=== PATIENT | male | born 1950 | race African-American/Black ===

== ENCOUNTER 2018-06-17 11:48 | Observation (INO) ==
[2018-06-17] MEDS ORDERED: MethylPREDNISolone Sod Succinate Inj 125 MG/2 ML Vial IV.PUSH ONE (13:27)
--- NOTE | 2018-06-17 13:35 | ED ---
HPI General Chief Complaint: Shortness of Breath/Dyspnea Stated Complaint: Headache Complaint Time Seen by Provider: 06/17/18 13:01 Source: patient Mode of arrival: EMS Limitations: no limitations History of Present Illness 68-year-old male with PMH of COPD, HTN, HLD, PTSD, chronic back pain, narcotic abuse, anxiety presents the ED via EMS for evaluation of shortness of breath. The [facility] was [facility] for evaluation and sent to the ED. EMS reported that the patient was hyperventilating in the waiting room at the [facility]. On presentation the patient states that he "had a spell" this morning. He states that he was running behind today, began to feel short of breath when he took his walker to the car and even more short of breath [facility] He reports a heavy sensation in his chest and diaphoresis at the time. This has now resolved. He endorses cough occasionally productive of yellow sputum. He denies fever, chills, nausea, vomiting, chest pain, palpitations, abdominal pain. He states that he has nebulizer treatments at home but did not use them today. He denies current cigarette smoking. He denies recent period of immobilization. He does not use supplemental oxygen at home. Related Data Home Medications Medication Instructions Recorded Confirmed gabapentin 600 mg PO BID 06/17/18 06/17/18 hydrochlorothiazide 12.5 mg PO DAILY 06/17/18 06/17/18 metoprolol tartrate 12.5 mg PO BID 06/17/18 06/17/18 mirtazapine 45 mg PO HS 06/17/18 06/17/18 multivitamin with minerals 1 cap PO DAILY 06/17/18 06/17/18 niacin 500 mg PO HS 06/17/18 06/17/18 omeprazole 20 mg PO DAILY 06/17/18 06/17/18 quetiapine 50 mg PO BID 06/17/18 06/17/18 sildenafil 50 mg PO QWEEK PRN 06/17/18 06/17/18 Allergies Allergy/AdvReac Type Severity Reaction Status Date / Time baclofen Allergy Unknown Unverified 01/19/17 20:13 etodolac Allergy Unknown Unverified 01/19/17 20:13 tramadol AdvReac Unknown Unverified 01/19/17 20:13 Review of Systems ROS: all other systems reviewed are negative [facility] Medical History Medical History Adjustment disorder with anxiety (Acute) HTN (hypertension) (Acute) Hypercholesteremia (Acute) Hypertriglyceridemia (Acute) Narcotic abuse (Acute) PTSD (post-traumatic stress disorder) (Acute) Family History Family History Other Diabetes mellitus, type II Hypertension Social History Social History Substance History: No History of Abuse Second Hand Smoke Exposure: No Smoking Status: Former smoker How Often Do You Have a Drink Containing Alcohol: Never Recent Travel in [facility] within the Last 8 Weeks: No Recent Out of Country Travel within the Last 8 Weeks: No Immunization History Tetanus Immunization: <5 Years Exam Narrative Exam Narrative: GENERAL: Well-nourished, well-developed, nontoxic-appearing -Romanian male in no acute distress. SKIN: Focused skin assessment warm/dry. HEAD: Atraumatic. Normocephalic. EYES: Pupils equal and round. No scleral icterus. No injection or drainage. ENT: No nasal bleeding or discharge. Mucous membranes pink and moist. NECK: Trachea midline. No JVD. CARDIOVASCULAR: Regular rate and rhythm. No murmur appreciated. RESPIRATORY: No accessory muscle use. Breath sounds equal bilaterally. No wheezes or rhonchi. GASTROINTESTINAL: Abdomen soft, non-tender, nondistended. Hepatic and splenic margins not palpable. MUSCULOSKELETAL: No obvious deformities. No clubbing. No cyanosis. No edema. NEUROLOGICAL: Awake and alert. No obvious cranial nerve deficits. Motor grossly within normal limits. Normal speech. PSYCHIATRIC: Appropriate mood and affect; insight and judgment normal. Course Reevaluation(s) Reevaluation #1: On recheck patient reports improvement of his breathing symptoms. I discussed the findings with the patient as well as the need for observation admission. He is agreeable. Time: 16:14 Initial Documented Vital Signs Temperature 98.6 F 06/17/18 12:04 Pulse Rate 86 06/17/18 12:04 Respiratory Rate 34 H 06/17/18 12:04 Blood Pressure 124/60 06/17/18 12:04 Pulse Oximetry 100 06/17/18 12:04 Last Documented Vital Signs Temperature 98.2 F 06/18/18 23:51 Pulse Rate 70 06/18/18 23:51 Respiratory Rate 16 06/18/18 23:51 Blood Pressure 133/76 06/18/18 23:51 Pulse Oximetry 96 06/18/18 23:51 Medical Decision Making ADELAIDA Attestation ADELAIDA supervised visit: Yes Attestation: I, Dr. Weathers, have reviewed the advance practice practitioner's documentation and am in agreement, met with the patient face to face, made the diagnosis, and the medical decision making was done by me. *My assessment and Findings: NSTEMI MDM Narrative Medical decision making narrative: 68-year-old male with PMH of COPD, HTN, HLD, PTSD, chronic back pain, narcotic abuse, anxiety presents the ED via EMS for evaluation of shortness of breath. The patient was at the [facility] for evaluation and sent to the ED. EMS reported that the patient was hyperventilating in the waiting room at the [facility]. On presentation the patient states that he "had a spell " this morning. He states that he was running behind today, began to feel short of breath when he took his walker to the car and even more short of breath [facility]. He reports a heavy sensation in his chest and diaphoresis at the time. This has now resolved. Pulse rate 86, BP 124 /60, respiratory rate 34, O2 sats 100% on arrival. Respiratory rate improved to 22 while the patient was awaiting evaluation. On physical exam this is a nontoxic appearing -Romanian male in no acute distress. Chest CTAP. Abdomen soft and nontender. No lower extremity edema. Patient was administered IV Solu-Medrol and DuoNeb's x 3 and 325mg aspirin. CBC with no leukocytosis or anemia. CMP unremarkable. EKG without acute findings x 2. CXR reveals mild increased interstitial markings bilaterally consistent with acute or chronic interstitial disease. Mild cardiomegaly noted. Troponin 0.28. On recheck patient reports improvement of his symptoms. CTA with no evidence of PE. I discussed all the findings with the patient as well as the need for observation admission for further evaluation. He is agreeable to this plan. I spoke with who agrees to accept the patient to the medicine service. Please see medicine notes for disposition. Medical Screen Exam Complete: Yes Emergency Medical Condition: Yes Differential Diagnosis Differential Diagnosis: COPD exacerbation versus anxiety versus ACS versus other Lab Data Lab results reviewed: Yes I reviewed the patient's lab results. Result diagrams: 06/18/18 06:45 06/18/18 06:45 Lab Results 06/17/18 06/17/18 06/17/18 Range/Units 13:40 13:40 13:40 WBC 6.1 (4.0-11.0) th/mm3 RBC 4.95 (4.50-5.90) mil/mm3 Hgb 15.9 (13.0-17.0) gm/dL Hct 46.5 (39.0-51.0) % MCV 93.8 (80.0-100.0) fL MCH 32.0 (27.0-34.0) pg MCHC 34.1 (32.0-36.0) % RDW 14.2 (11.6-17.2) % Plt Count 240 (150-450) th/mm3 MPV 7.1 (7.0-11.0) fL Neut % (Auto) 49.4 (16.0-70.0) % Lymph % (Auto) 35.4 (9.0-44.0) % Bent % (Auto) 9.1 H (0.0-8.0) % Eos % (Auto) 4.9 H (0.0-4.0) % Baso % (Auto) 1.2 (0.0-2.0) % Neut # (Auto) 3.0 (1.8-7.7) th/mm3 Lymph # (Auto) 2.2 (1.0-4.8) th/mm3 Bent # (Auto) 0.6 (0.0-0.9) th/mm3 Eos # (Auto) 0.3 (0.0-0.4) th/mm3 Baso # (Auto) 0.1 (0.0-0.2) th/mm3 WBC Differential . Differential Comment Auto diff final PT (9.8-11.6) sec INR Ratio APTT (23.4-31.7) sec Puncture Site Patient Temperature O2 Saturation (90-100) % ABG pH (7.380-7.420) ABG pCO2 (38-42) mmHg ABG pO2 (61-120) mmHg ABG HCO3 (22-26) mmol/L ABG O2 Content (12.0-20.0) Vol % ABG Base Excess (-2-2) mmol/L ABG Methemoglobin (0-2) % Rod Test Hemoglobin (12.0-16.0) G/DL Carboxyhemoglobin (0-4) % O2 Delivery Device Inspired O2 % Critical Value Sodium 140 (136-145) meq/L Potassium 4.4 (3.5-5.1) meq/L Chloride 108 H (98-107) meq/L Carbon Dioxide 23.9 (21.0-32.0) meq/L Anion Gap 8 (5-15) meq/L BUN 16 (7-18) mg/dL Creatinine 1.19 (0.60-1.30) mg/dL Estimated GFR 73 L (>89) mL/min Random Glucose 94 (74-106) mg/dL Calcium 9.5 (8.5-10.1) mg/dL Total Bilirubin 0.6 (0.2-1.0) mg/dL AST 29 (15-37) U/L ALT 27 (12-78) U/L Alkaline Phosphatase 100 (45-117) U/L Total Creatine Kinase (39-308) U/L Troponin I 0.28 H (0.02-0.05) ng/mL B-Natriuretic Peptide 16 (0-100) pg/mL Total Protein 7.7 (6.4-8.2) g/dL Albumin 3.7 (3.4-5.0) g/dL Triglycerides (42-150) mg/dL Cholesterol (120-200) mg/dL LDL Cholesterol, Calc (0-99) mg/dL HDL Cholesterol (40.0-60.0) mg/dL Cholesterol/HDL Ratio Ratio 06/17/18 06/17/18 06/17/18 Range/Units 16:35 18:10 18:20 WBC (4.0-11.0) th/mm3 RBC (4.50-5.90) mil/mm3 Hgb (13.0-17.0) gm/dL Hct (39.0-51.0) % MCV (80.0-100.0) fL MCH (27.0-34.0) pg MCHC (32.0-36.0) % RDW (11.6-17.2) % Plt Count (150-450) th/mm3 MPV (7.0-11.0) fL Neut % (Auto) (16.0-70.0) % Lymph % (Auto) (9.0-44.0) % Bent % (Auto) (0.0-8.0) % Eos % (Auto) (0.0-4.0) % Baso % (Auto) (0.0-2.0) % Neut # (Auto) (1.8-7.7) th/mm3 Lymph # (Auto) (1.0-4.8) th/mm3 Bent # (Auto) (0.0-0.9) th/mm3 Eos # (Auto) (0.0-0.4) th/mm3 Baso # (Auto) (0.0-0.2) th/mm3 WBC Differential Differential Comment PT 11.0 (9.8-11.6) sec INR 1.1 Ratio APTT 24.9 (23.4-31.7) sec Puncture Site Right radial Patient Temperature 98.6 O2 Saturation 90 (90-100) % ABG pH 7.43 H (7.380-7.420) ABG pCO2 38 (38-42) mmHg ABG pO2 64 (61-120) mmHg ABG HCO3 25 (22-26) mmol/L ABG O2 Content 20.1 H (12.0-20.0) Vol % ABG Base Excess 0.8 (-2-2) mmol/L ABG Methemoglobin 0.6 (0-2) % Rod Test Present Hemoglobin 15.8 (12.0-16.0) G/DL Carboxyhemoglobin 1.9 (0-4) % O2 Delivery Device Room air Inspired O2 21 % Critical Value No Sodium (136-145) meq/L Potassium (3.5-5.1) meq/L Chloride (98-107) meq/L Carbon Dioxide (21.0-32.0) meq/L Anion Gap (5-15) meq/L BUN (7-18) mg/dL Creatinine (0.60-1.30) mg/dL Estimated GFR (>89) mL/min Random Glucose (74-106) mg/dL Calcium (8.5-10.1) mg/dL Total Bilirubin (0.2-1.0) mg/dL AST (15-37) U/L ALT (12-78) U/L Alkaline Phosphatase (45-117) U/L Total Creatine Kinase (39-308) U/L Troponin I 0.30 H (0.02-0.05) ng/mL B-Natriuretic Peptide (0-100) pg/mL Total Protein (6.4-8.2) g/dL Albumin (3.4-5.0) g/dL Triglycerides (42-150) mg/dL Cholesterol (120-200) mg/dL LDL Cholesterol, Calc (0-99) mg/dL HDL Cholesterol (40.0-60.0) mg/dL Cholesterol/HDL Ratio Ratio 06/18/18 06/18/18 06/18/18 Range/Units 00:07 00:07 06:45 WBC 3.9 L (4.0-11.0) th/mm3 RBC 4.40 L (4.50-5.90) mil/mm3 Hgb 14.2 (13.0-17.0) gm/dL Hct 41.4 (39.0-51.0) % MCV 94.0 (80.0-100.0) fL MCH 32.2 (27.0-34.0) pg MCHC 34.2 (32.0-36.0) % RDW 13.0 (11.6-17.2) % Plt Count 210 (150-450) th/mm3 MPV 8.8 (7.0-11.0) fL Neut % (Auto) 46.4 (16.0-70.0) % Lymph % (Auto) 39.8 (9.0-44.0) % Bent % (Auto) 9.6 H (0.0-8.0) % Eos % (Auto) 3.7 (0.0-4.0) % Baso % (Auto) 0.5 (0.0-2.0) % Neut # (Auto) 1.8 (1.8-7.7) th/mm3 Lymph # (Auto) 1.5 (1.0-4.8) th/mm3 Bent # (Auto) 0.4 (0.0-0.9) th/mm3 Eos # (Auto) 0.1 (0.0-0.4) th/mm3 Baso # (Auto) 0.0 (0.0-0.2) th/mm3 WBC Differential . Differential Comment Auto diff final PT (9.8-11.6) sec INR Ratio APTT 56.5 H D (23.4-31.7) sec Puncture Site Patient Temperature O2 Saturation (90-100) % ABG pH (7.380-7.420) ABG pCO2 (38-42) mmHg ABG pO2 (61-120) mmHg ABG HCO3 (22-26) mmol/L ABG O2 Content (12.0-20.0) Vol % ABG Base Excess (-2-2) mmol/L ABG Methemoglobin (0-2) % Rod Test Hemoglobin (12.0-16.0) G/DL Carboxyhemoglobin (0-4) % O2 Delivery Device Inspired O2 % Critical Value Sodium (136-145) meq/L Potassium (3.5-5.1) meq/L Chloride (98-107) meq/L Carbon Dioxide (21.0-32.0) meq/L Anion Gap (5-15) meq/L BUN (7-18) mg/dL Creatinine (0.60-1.30) mg/dL Estimated GFR (>89) mL/min Random Glucose (74-106) mg/dL Calcium (8.5-10.1) mg/dL Total Bilirubin (0.2-1.0) mg/dL AST (15-37) U/L ALT (12-78) U/L Alkaline Phosphatase (45-117) U/L Total Creatine Kinase 120 (39-308) U/L Troponin I 0.16 H (0.02-0.05) ng/mL B-Natriuretic Peptide (0-100) pg/mL Total Protein (6.4-8.2) g/dL Albumin (3.4-5.0) g/dL Triglycerides (42-150) mg/dL Cholesterol (120-200) mg/dL LDL Cholesterol, Calc (0-99) mg/dL HDL Cholesterol (40.0-60.0) mg/dL Cholesterol/HDL Ratio Ratio 06/18/18 06/18/18 06/18/18 Range/Units 06:45 06:45 15:30 WBC (4.0-11.0) th/mm3 RBC (4.50-5.90) mil/mm3 Hgb (13.0-17.0) gm/dL Hct (39.0-51.0) % MCV (80.0-100.0) fL MCH (27.0-34.0) pg MCHC (32.0-36.0) % RDW (11.6-17.2) % Plt Count (150-450) th/mm3 MPV (7.0-11.0) fL Neut % (Auto) (16.0-70.0) % Lymph % (Auto) (9.0-44.0) % Bent % (Auto) (0.0-8.0) % Eos % (Auto) (0.0-4.0) % Baso % (Auto) (0.0-2.0) % Neut # (Auto) (1.8-7.7) th/mm3 Lymph # (Auto) (1.0-4.8) th/mm3 Bent # (Auto) (0.0-0.9) th/mm3 Eos # (Auto) (0.0-0.4) th/mm3 Baso # (Auto) (0.0-0.2) th/mm3 WBC Differential Differential Comment PT (9.8-11.6) sec INR Ratio APTT 35.6 H D 48.9 H D (23.4-31.7) sec Puncture Site Patient Temperature O2 Saturation (90-100) % ABG pH (7.380-7.420) ABG pCO2 (38-42) mmHg ABG pO2 (61-120) mmHg ABG HCO3 (22-26) mmol/L ABG O2 Content (12.0-20.0) Vol % ABG Base Excess (-2-2) mmol/L ABG Methemoglobin (0-2) % Rod Test Hemoglobin (12.0-16.0) G/DL Carboxyhemoglobin (0-4) % O2 Delivery Device Inspired O2 % Critical Value Sodium 141 (136-145) meq/L Potassium 3.9 (3.5-5.1) meq/L Chloride 106 (98-107) meq/L Carbon Dioxide 26.2 (21.0-32.0) meq/L Anion Gap 9 (5-15) meq/L BUN 10 (7-18) mg/dL Creatinine 0.74 (0.60-1.30) mg/dL Estimated GFR Greater than 89 (>89) mL/min Random Glucose 76 (74-106) mg/dL Calcium 8.7 D (8.5-10.1) mg/dL Total Bilirubin 0.9 (0.2-1.0) mg/dL AST 26 (15-37) U/L ALT 49 (12-78) U/L Alkaline Phosphatase 89 (45-117) U/L Total Creatine Kinase (39-308) U/L Troponin I (0.02-0.05) ng/mL B-Natriuretic Peptide (0-100) pg/mL Total Protein 6.8 D (6.4-8.2) g/dL Albumin 3.7 (3.4-5.0) g/dL Triglycerides 150 (42-150) mg/dL Cholesterol 151 (120-200) mg/dL LDL Cholesterol, Calc 82 (0-99) mg/dL HDL Cholesterol 39.3 L (40.0-60.0) mg/dL Cholesterol/HDL Ratio 3.84 Ratio 06/18/18 Range/Units 21:19 WBC (4.0-11.0) th/mm3 RBC (4.50-5.90) mil/mm3 Hgb (13.0-17.0) gm/dL Hct (39.0-51.0) % MCV (80.0-100.0) fL MCH (27.0-34.0) pg MCHC (32.0-36.0) % RDW (11.6-17.2) % Plt Count (150-450) th/mm3 MPV (7.0-11.0) fL Neut % (Auto) (16.0-70.0) % Lymph % (Auto) (9.0-44.0) % Bent % (Auto) (0.0-8.0) % Eos % (Auto) (0.0-4.0) % Baso % (Auto) (0.0-2.0) % Neut # (Auto) (1.8-7.7) th/mm3 Lymph # (Auto) (1.0-4.8) th/mm3 Bent # (Auto) (0.0-0.9) th/mm3 Eos # (Auto) (0.0-0.4) th/mm3 Baso # (Auto) (0.0-0.2) th/mm3 WBC Differential Differential Comment PT (9.8-11.6) sec INR Ratio APTT 45.0 H (23.4-31.7) sec Puncture Site Patient Temperature O2 Saturation (90-100) % ABG pH (7.380-7.420) ABG pCO2 (38-42) mmHg ABG pO2 (61-120) mmHg ABG HCO3 (22-26) mmol/L ABG O2 Content (12.0-20.0) Vol % ABG Base Excess (-2-2) mmol/L ABG Methemoglobin (0-2) % Rod Test Hemoglobin (12.0-16.0) G/DL Carboxyhemoglobin (0-4) % O2 Delivery Device Inspired O2 % Critical Value Sodium (136-145) meq/L Potassium (3.5-5.1) meq/L Chloride (98-107) meq/L Carbon Dioxide (21.0-32.0) meq/L Anion Gap (5-15) meq/L BUN (7-18) mg/dL Creatinine (0.60-1.30) mg/dL Estimated GFR (>89) mL/min Random Glucose (74-106) mg/dL Calcium (8.5-10.1) mg/dL Total Bilirubin (0.2-1.0) mg/dL AST (15-37) U/L ALT (12-78) U/L Alkaline Phosphatase (45-117) U/L Total Creatine Kinase (39-308) U/L Troponin I (0.02-0.05) ng/mL B-Natriuretic Peptide (0-100) pg/mL Total Protein (6.4-8.2) g/dL Albumin (3.4-5.0) g/dL Triglycerides (42-150) mg/dL Cholesterol (120-200) mg/dL LDL Cholesterol, Calc (0-99) mg/dL HDL Cholesterol (40.0-60.0) mg/dL Cholesterol/HDL Ratio Ratio Imaging Data Attestation: I personally reviewed and interpreted this imaging study as follows : Radiologist's impression: Chest X-Ray 06/17/18 13:27 CONCLUSION: 1. Mild increased interstitial markings are noted bilaterally consistent with acute or chronic interstitial disease. 2. Mild cardiomegaly. Chest CTA 06/17/18 16:00 CONCLUSION: There is no evidence of PE for technique. ECG Data EKG Prior to Arrival: Yes Attestation: I personally reviewed and interpreted this ECG as follows: Interpretation: Rate 64, sinus rhythm. DC interval 172, QRS 86, QTc 386 ms. Normal axis. No acute ST changes. Reviewed by Dr. Weathers. Discharge Plan Discharge Disposition Patient Disposition: ED Admit(ED Internal Use Only) Discharge Order Discharge Orders: ED Use Only Admit Order (Routine); Ordered 06/17/18 Ordered By: Emma Allred Physicians Team ED Provider: Fernando Weathers ED Midlevel Provider: Emma Allred Primary Care Provider: [facility],Physician 's Attending Provider: Haresh Powers Other Providers: Minor,Ron Status ED Status: Left Department Discharge Information Discharge Date/Time: 06/17/18 19:09 Addendum entered and electronically signed by RACHEL Royal 06/17/18 18: 18: The second troponin is elevated from 0.28-0.3. I discussed the findings with Dr. Powers. He recommends heparin bolus and drip. This was initiated. Dr. Powers states that he will consult cardiology.
[2018-06-17 13:53] LABS: Baso # (Auto) 0.1 th/mm3 (0.0-0.2); Baso % (Auto) 1.2 % (0.0-2.0); Eos # (Auto) 0.3 th/mm3 (0.0-0.4); Eos % (Auto) 4.9 % (0.0-4.0); Hematocrit 46.5 % (39.0-51.0); Hemoglobin 15.9 gm/dL (13.0-17.0); Lymph # (Auto) 2.2 th/mm3 (1.0-4.8); Lymph % (Auto) 35.4 % (9.0-44.0); Mean Corpuscular HGB Conc 34.1 % (32.0-36.0); Mean Corpuscular Volume 93.8 fL (80.0-100.0); Mean Platelet Volume 7.1 fL (7.0-11.0); Mono # (Auto) 0.6 th/mm3 (0.0-0.9); Mono % (Auto) 9.1 % (0.0-8.0); Neut % (Auto) 49.4 % (16.0-70.0); Platelet Count 240 th/mm3 (150-450); Red Blood Count 4.95 mil/mm3 (4.50-5.90); Red Cell Distribution Width 14.2 % (11.6-17.2); White Blood Count 6.1 th/mm3 (4.0-11.0)
--- NOTE | 2018-06-17 14:20 | XR ---
EXAM DATE: 06/17/2018 2:04 PM EST AGE/SEX: 68 years / Male INDICATIONS: Shortness of breath. CLINICAL DATA: This is the patient's initial encounter. Patient reports that signs and symptoms have been present for 1 day and indicates a pain score of 0/10. MEDICAL/SURGICAL HISTORY: Hypertension. . Unobtainable. COMPARISON: No prior exams available for comparison. FINDINGS: The heart is mildly enlarged. Mild increased interstitial markings are noted bilaterally consistent w ith acute or chronic interstitial disease. No focal alveolar consolidation is noted. CONCLUSION: 1. Mild increased interstitial markings are noted bilaterally consistent with acute or chronic inter stitial disease. 2. Mild cardiomegaly. Electronically signed by: To Ho MD Board Certified Radiologist 06/17/2018 2:18 PM EST
[2018-06-17 15:43] LABS: Albumin 3.7 g/dL (3.4-5.0); Anion Gap 8 meq/L (5-15); Aspartate Aminotransferase 29 U/L (15-37); Blood Urea Nitrogen 16 mg/dL (7-18); Calcium 9.5 mg/dL (8.5-10.1); Carbon Dioxide 23.9 meq/L (21.0-32.0); Chloride 108 meq/L (98-107); Glomerular Filtration Rate 73 mL/min (>89); Glucose,Random 94 mg/dL (74-106); Potassium 4.4 meq/L (3.5-5.1); Sodium 140 meq/L (136-145)
[2018-06-17 15:47] LABS: Alanine Aminotransferase 27 U/L (12-78); Alkaline Phosphatase 100 U/L (45-117); Total Protein 7.7 g/dL (6.4-8.2); Troponin I 0.28 ng/mL (0.02-0.05)
[2018-06-17] MEDS ORDERED: Aspirin 325 MG Tablet PO ONE (16:00)
--- NOTE | 2018-06-17 17:26 | CT ---
EXAM DATE: 06/17/2018 5:19 PM EST AGE/SEX: 68 years / Male INDICATIONS: Shortness of breath. CLINICAL DATA: This is the patient's initial encounter. Patient reports that signs and symptoms have been present for 1 day and indicates a pain score of 9/10. MEDICAL/SURGICAL HISTORY: Hypertension. Chronic obstructive pulmonary disease. None. RADIATION DOSE: 10.74 CTDI (mGy) COMPARISON: No prior exams available for comparison. TECHNIQUE: Volumetric scanning was performed using a multi-row detector CT scanner during bolus infu bishop of 75ML ml Omnipaque 350 (iohexol) nonionic water-soluble contrast as a single exam dose. The d evelyn was post processed with a variety of visualization algorithms including full volume maximum inten sity projection and sliding thin slab reformation. Using automated exposure control and adjustment o f the mA and/or kV according to patient size, radiation dose was kept as low as reasonably achievable to obtain optimal diagnostic quality images. DICOM format image data is available electronically fo r review and comparison. FINDINGS: There is irregular sclerosis of L1 vertebrae partially extending into the right pedicle not adequatel y characterized by this technique could potentially be a hemangioma. There are compression deformitie s of mid thoracic vertebrae most likely old and chronic with superimposed significant degenerative ch haile at multiple levels. Lungs are clear. There is no pleural effusion. There is no evidence of PE fo r technique. Multiple old rib fractures are seen on the left. CONCLUSION: There is no evidence of PE for technique. Electronically signed by: Eden Cantrell MD Board Certified Radiologist 06/17/2018 5:24 PM EST
[2018-06-17] MEDS ORDERED: Acetaminophen 325 MG Tablet PO PRN (17:42)
[2018-06-17] MEDS ORDERED: Naloxone Inj 0.4 MG/ML Vial IV.PUSH PRN (17:42)
[2018-06-17] MEDS ORDERED: Heparin - SQ 10,000 UNITS/ML Vial SQ SCH (17:45)
--- NOTE | 2018-06-17 17:57 | P.HP ---
History of Present Illness Primary Care Physician: [facility] Chief Complaint: Shortness of breath History of Present Illness: 68-year-old man with a past medical history of hypertension, hyperlipidemia, [facility] symptoms of shortness of breath along with respiratory distress. Apparently, [facility] secondary to low back pain. [facility] patient was noted to have a respiratory rate of 34 with difficulty breathing. Patient states earlier this morning when he was medical history of to his appointment he endorsed severe shortness of breath with minimal exertion however as well as substernal chest pain without any radiation. He endorses occasional productive of yellow sputum but denies any febrile episode. He has no history of tobacco or alcohol abuse and denies any exposure to secondhand smoking. The patient was speaking in short sentences. He has no GI bleed. He denies using any supplemental oxygen at home. 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 - Medical History Medical History: Medical History (Last Updated 06/17/18 @ 12:12 by Jerrod Velasco RN) Adjustment disorder with anxiety HTN (hypertension) Hypercholesteremia Hypertriglyceridemia Narcotic abuse PTSD (post-traumatic stress disorder) - Family History Family History: Family History (Last Updated 06/17/18 @ 17:54 by Haresh Powers MD) Other Diabetes mellitus, type II Hypertension - Tobacco History Smoking Status: Former smoker - Alcohol History How Often Do You Have a Drink Containing Alcohol: Never - Travel History Recent Travel in the [place] Within the Last 8 Weeks: No Recent Travel Out of the Country Within the Last 8 Weeks: No - Immunization History Tetanus Immunization: <5 Years Medications and Allergies Active Medications: Active Medications Acetaminophen (Tylenol) 650 mg PO Q4H PRN PRN Reason: Temp > 100.4 Al Hydroxide/Mg Hydroxide (Milk Of Magnesia Liq) 30 ml PO Q12H PRN PRN Reason: Mild Constipation Albuterol (Duoneb Neb (Prn)) 1 ampul NEB Q2HR NEB PRN PRN Reason: SHORTNESS OF BREATH Albuterol (Duoneb Neb (Susy)) 1 ampul NEB Q6HR WHILE AWAKE NEB SUSY Budesonide/Formoterol Fumarate (Symbicort 80/4.5 Mcg Inh) 1 puff INH BID [facility] Guaifenesin (Mucinex Er) 600 mg PO BID [facility] Heparin Sodium (Porcine) (Heparin Inj) 5,000 units SQ Q8H [facility] Hydrochlorothiazide (Microzide) 12.5 mg PO DAILY [facility] Methylprednisolone Sodium Succinate (Solumedrol Inj) 40 mg IV.PUSH Q12HR [facility] Metoprolol Tartrate (Lopressor) 12.5 mg PO BID [facility] Naloxone HCl (Narcan Inj) 0.4 mg IV.PUSH UNSCH PRN PRN Reason: SEE LABEL COMMENTS Non-Formulary Medication (Gabapentin [Gabapentin]) 600 mg PO BID [facility] Non-Formulary Medication (Mirtazapine [Mirtazapine]) 45 mg PO HS [facility] Non-Formulary Medication (Niacin [Niacin]) 500 mg PO HS [facility] Non-Formulary Medication (Omeprazole [Omeprazole]) 20 mg PO DAILY [facility] Ondansetron HCl (Zofran Inj) 4 mg IV.PUSH Q6H PRN PRN Reason: NAUSEA OR VOMITING Quetiapine Fumarate (Seroquel) 50 mg PO BID [facility] Sodium Chloride (Ns Flush) 2 ml IV.FLUSH BID [facility] Sodium Chloride (Ns Flush) 2 ml IV.FLUSH PRN PRN PRN Reason: FLUSH AFTER USING IV ACCESS Tiotropium [place] (Spiriva 18 Mcg Inh) 18 mcg INH DAILY [facility] Allergies Allergy/AdvReac Type Severity Reaction Status Date / Time baclofen Allergy Unknown Unverified 01/19/17 20:13 etodolac Allergy Unknown Unverified 01/19/17 20:13 tramadol AdvReac Unknown Unverified 01/19/17 20:13 Home Medications Medication Instructions Recorded Confirmed Type gabapentin 600 mg PO BID 06/17/18 06/17/18 History hydrochlorothiazide 12.5 mg PO DAILY 06/17/18 06/17/18 History metoprolol tartrate 12.5 mg PO BID 06/17/18 06/17/18 History mirtazapine 45 mg PO HS 06/17/18 06/17/18 History multivitamin with minerals 1 cap PO DAILY 06/17/18 06/17/18 History niacin 500 mg PO HS 06/17/18 06/17/18 History omeprazole 20 mg PO DAILY 06/17/18 06/17/18 History quetiapine 50 mg PO BID 06/17/18 06/17/18 History sildenafil 50 mg PO QWEEK PRN 06/17/18 06/17/18 History Exam Vital signs: Vital Signs 06/17/18 12:04 06/17/18 12:14 06/17/18 13:27 Temperature 98.6 F Pulse Rate 86 70 Respiratory Rate 34 H 22 Blood Pressure 124/60 Pulse Oximetry 100 100 06/17/18 14:05 06/17/18 15:00 06/17/18 16:00 Temperature Pulse Rate 68 66 66 Respiratory Rate 20 17 Blood Pressure 145/78 H 129/74 Pulse Oximetry 99 97 98 Intake & Output 06/16/18 06/17/18 06/17/18 18:59 06:59 18:59 Weight 72.575 kg Narrative: GENERAL: NAD SKIN: Warm and dry. HEAD: Atraumatic. Normocephalic. EYES: Pupils equal and round. No scleral icterus. No injection or drainage. ENT: No nasal bleeding or discharge. Mucous membranes pink and moist. NECK: Trachea midline. No JVD. CARDIOVASCULAR: Regular rate and rhythm. RESPIRATORY: No accessory muscle use. Clear to auscultation. Breath sounds decreased bilaterally. GASTROINTESTINAL: Abdomen soft, non-tender, nondistended. Hepatic and splenic margins not palpable. MUSCULOSKELETAL: Extremities without clubbing, cyanosis, or edema. No obvious deformities. NEUROLOGICAL: Awake and alert. No obvious cranial nerve deficits. Motor grossly within normal limits. Five out of 5 muscle strength in the arms and legs. Normal speech. PSYCHIATRIC: Appropriate mood and affect; insight and judgment normal. Results - Labs CBC & Chem 7: 06/17/18 13:40 06/17/18 13:40 Labs: Laboratory Results - last 24 hr 06/17/18 06/17/18 06/17/18 13:40 13:40 13:40 WBC 6.1 RBC 4.95 Hgb 15.9 Hct 46.5 MCV 93.8 MCH 32.0 MCHC 34.1 RDW 14.2 Plt Count 240 MPV 7.1 Neut % (Auto) 49.4 Lymph % (Auto) 35.4 [place] % (Auto) 9.1 H Eos % (Auto) 4.9 H Baso % (Auto) 1.2 Neut # (Auto) 3.0 Lymph # (Auto) 2.2 [place] # (Auto) 0.6 Eos # (Auto) 0.3 Baso # (Auto) 0.1 WBC Differential . Differential Comment Auto diff final Sodium 140 Potassium 4.4 Chloride 108 H Carbon Dioxide 23.9 Anion Gap 8 BUN 16 Creatinine 1.19 Estimated GFR 73 L Random Glucose 94 Calcium 9.5 Total Bilirubin 0.6 AST 29 ALT 27 Alkaline Phosphatase 100 Troponin I 0.28 H B-Natriuretic Peptide 16 Total Protein 7.7 Albumin 3.7 - Imaging Impressions Chest X-Ray 06/17/18 13:27 CONCLUSION: 1. Mild increased interstitial markings are noted bilaterally consistent with acute or chronic interstitial disease. 2. Mild cardiomegaly. Chest CTA 06/17/18 16:00 CONCLUSION: There is no evidence of PE for technique. Caprini VTE Risk Assessment Caprini VTE Risk Assessment: Moderate/High Risk (score >= 2) Caprini Risk Assessment Model: Point Value = 1 Point Value = 2 Point Value = 3 Point Value = 5 Age 41-60 Minor surgery BMI > 25 kg/m2 Swollen legs Varicose veins or History of unexplained or recurrent spontaneous Oral contraceptives or hormone replacement Sepsis (< 1 month) Serious lung disease, including pneumonia (< 1 month) Abnormal pulmonary function Acute myocardial infarction Congestive heart failure (< 1 month) History of inflammatory bowel disease Medical patient at bed rest Age 61-74 Arthroscopic surgery Major open surgery (> 45 min) Laparoscopic surgery (> 45 min) Malignancy Confined to bed (> 72 hours) Immobilizing plaster cast Central venous access Age >= 75 History of VTE Family history of VTE Factor V Leiden Prothrombin [id number] Lupus anticoagulant Anticardiolipin antibodies Elevated serum homocysteine Heparin-induced thrombocytopenia Other congenital or acquired thrombophilia Stroke (< 1 month) Elective arthroplasty Hip, pelvis, or leg fracture Acute spinal cord injury (< 1 month) Prophylaxis Regimen: Total Risk Factor Score Risk Level Prophylaxis Regimen 0-1 Low Early ambulation 2 Moderate Order ONE of the following: *Sequential Compression Device (SCD) *Heparin 5000 units SQ BID 3-4 Higher Order ONE of the following medications: *Heparin 5000 units SQ TID *Enoxaparin/Lovenox 40 mg SQ daily (WT < 150 kg, CrCl > 30 mL/min) *Enoxaparin/Lovenox 30 mg SQ daily (WT < 150 kg, CrCl > 10-29 mL/min) *Enoxaparin/Lovenox 30 mg SQ BID (WT < 150 kg, CrCl > 30 mL/min) AND/OR *Sequential Compression Device (SCD) 5 or more Highest Order ONE of the following medications: *Heparin 5000 units SQ TID (Preferred with Epidurals) *Enoxaparin/Lovenox 40 mg SQ daily (WT < 150 kg, CrCl > 30 mL/min) *Enoxaparin/Lovenox 30 mg SQ daily (WT < 150 kg, CrCl > 10-29 mL/min) *Enoxaparin/Lovenox 30 mg SQ BID (WT < 150 kg, CrCl > 30 mL/min) AND *Sequential Compression Device (SCD) Assessment and Plan - Plan 68-year-old man with COPD exacerbation CTA chest noted and reviewed by me without any PE Chest x-ray noted and reviewed by me with finding of Patient status post Solu-Medrol 125 mg IV x1 in ED, Start Solu-Medrol 40 mg IV every 12 hours, Spiriva, Symbicort, Duo Neb schedule and as needed, Mucinex, azithromycin 250 mg daily Check ABG and maintain oxygen saturation above 92% Check flu A and B antigen and treat accordingly Elevated troponin I/non-ST elevation ND? will rule out ACS per protocol with serial cardiac enzyme and EKGs Start heparin drip, Nitropaste Consult cardiology Check 2D echo, lipid profile Hypertension, hyperlipidemia and other chronic medical conditions Resume outpatient medications DVT prophylaxis: Heparin
[2018-06-17] MEDS ORDERED: Heparin 10,000 UNITS/10 ML Vial (for IV use) IV.PUSH STA (18:14)
[2018-06-17 18:17] LABS: ABG Base Excess 0.8 mmol/L (-2-2); ABG PCO2 38 mmHg (38-42); ABG PO2 64 mmHg (61-120)
[2018-06-17] MEDS: Heparin Drip 25,000 UNIT/250 ML BAG IV.CONT PRN (18:28)
[2018-06-17 18:55] LABS: Activated Partial Thrombo Time 24.9 sec (23.4-31.7); INR 1.1 Ratio
[2018-06-17] MEDS ORDERED: MethylPREDNISolone Sod Succinate Inj 40 MG/ML Vial IV.PUSH SCH (21:00)
[2018-06-17] MEDS: Gabapentin 300 MG Capsule PO SCH (22:00)
[2018-06-17] MEDS: Metoprolol Tartrate 25 MG Tablet PO SCH (22:00)
[2018-06-17] MEDS: Famotidine 20 MG Tablet PO SCH (22:01)
[2018-06-17] MEDS: QUEtiapine 25 MG Tablet PO SCH (22:01)
[2018-06-17] MEDS: Mirtazapine 15 MG Tablet PO SCH (22:02)
[2018-06-17] MEDS: guaiFENesin 600 MG ER Tablet PO SCH (22:02)
[2018-06-17] MEDS: Budesonide-Formoterol 80/4.5 MCG 6.9 GM Inhaler INH SCH (23:18)
[2018-06-18 00:44] LABS: Troponin I 0.16 ng/mL (0.02-0.05)
--- NOTE | 2018-06-18 08:03 | P.CONCA ---
History of Present Illness Service: cardiology Consult date: 06/18/18 Reason for Consult: NSTEMI Primary Care Provider: [facility] Chief Complaint: Shortness of breath History of Present Illness: 68 yo AAM with no prior cardiac history who [facility] for [facility], PTSD, HTN and HLD who [facility] , during his visit he became very SOB, tachypneic and developed chest pain; he was then referred to the ED for further workup. The patient states he had "9/10 " anterior, sub sternal chest discomfort upon arrival to the ED which has improved to "7/10", chest pain had remained persistent per patient. He reports having had another episode of chest discomfort a few days back. His SOB has improved with breathing treatments and he is currently resting comfortably. Troponin levels minimally elevated 0.16 --> 0.03 --> 0.28. CTA neg for P.E. 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 - Medical History Medical History: Medical History (Last Updated 06/17/18 @ 12:12 by Jerrod Velasco RN) Adjustment disorder with anxiety HTN (hypertension) Hypercholesteremia Hypertriglyceridemia Narcotic abuse PTSD (post-traumatic stress disorder) - Family History Family History: Family History (Last Updated 06/17/18 @ 17:54 by Haresh Powers MD) Other Diabetes mellitus, type II Hypertension - Tobacco History Second Hand Smoke Exposure: No Smoking Status: Former smoker - Alcohol History How Often Do You Have a Drink Containing Alcohol: Never - Substance Use History Substance History: No History of Abuse - Travel History Recent Travel in the [place] Within the Last 8 Weeks: No Recent Travel Out of the Country Within the Last 8 Weeks: No - Immunization History Tetanus Immunization: <5 Years Medications and Allergies Allergies Allergy/AdvReac Type Severity Reaction Status Date / Time baclofen Allergy Unknown Unverified 01/19/17 20:13 etodolac Allergy Unknown Unverified 01/19/17 20:13 tramadol AdvReac Unknown Unverified 01/19/17 20:13 Home Medications Medication Instructions Recorded Confirmed Type gabapentin 600 mg PO BID 06/17/18 06/17/18 History hydrochlorothiazide 12.5 mg PO DAILY 06/17/18 06/17/18 History metoprolol tartrate 12.5 mg PO BID 06/17/18 06/17/18 History mirtazapine 45 mg PO HS 06/17/18 06/17/18 History multivitamin with minerals 1 cap PO DAILY 06/17/18 06/17/18 History niacin 500 mg PO HS 06/17/18 06/17/18 History omeprazole 20 mg PO DAILY 06/17/18 06/17/18 History quetiapine 50 mg PO BID 06/17/18 06/17/18 History sildenafil 50 mg PO QWEEK PRN 06/17/18 06/17/18 History Active Medications: Active Medications Acetaminophen (Tylenol) 650 mg PO Q4H PRN PRN Reason: Temp > 100.4 Last Admin: 06/17/18 23:18 Dose: 650 mg Al Hydroxide/Mg Hydroxide (Milk Of Magnemmanuel Liq) 30 ml PO Q12H PRN PRN Reason: Mild Constipation Albuterol (Duoneb Neb (Prn)) 1 ampul NEB Q2HR NEB PRN PRN Reason: SHORTNESS OF BREATH Albuterol (Duoneb Neb (Anibal)) 1 ampul NEB Q6HR WHILE AWAKE NEB [facility] Last Admin: 06/17/18 19:22 Dose: 1 ampul Azithromycin (Zithromax) 250 mg PO DAILY [facility] Budesonide/Formoterol Fumarate (Symbicort 80/4.5 Mcg Inh) 1 puff INH BID [facility] Last Admin: 06/17/18 23:18 Dose: 1 puff Famotidine (Pepcid) 20 mg PO BID [facility] Last Admin: 06/17/18 22:01 Dose: 20 mg Gabapentin (Neurontin) 600 mg PO BID [facility] Last Admin: 06/17/18 22:00 Dose: 600 mg Guaifenesin (Mucinex Er) 600 mg PO BID [facility] Last Admin: 06/17/18 22:02 Dose: 600 mg Hydrochlorothiazide (Microzide) 12.5 mg PO DAILY [facility] Heparin Sodium/Dextrose (Heparin/D5w 25,000 U/250 Ml) 25,000 unit in 250 mls @ 0 mls/hr IV.CONT TITRATE PRN; Protocol PRN Reason: Per Protocol Last Admin: 06/17/18 18:28 Dose: 900 units/hr, 9 mls/hr Methylprednisolone Sodium Succinate (Solumedrol Inj) 40 mg IV.PUSH Q12HR [facility] Last Admin: 06/17/18 22:02 Dose: 40 mg Metoprolol Tartrate (Lopressor) 12.5 mg PO BID [facility] Last Admin: 06/17/18 22:00 Dose: 12.5 mg Mirtazapine (Remeron) 45 mg PO HS [facility] Last Admin: 06/17/18 22:02 Dose: 45 mg Naloxone HCl (Narcan Inj) 0.4 mg IV.PUSH UNSCH PRN PRN Reason: SEE LABEL COMMENTS Niacin (Slo-Niacin) 500 mg PO HS [facility] Last Admin: 06/17/18 22:02 Dose: 500 mg Nitroglycerin (Nitro-Bid 2% Oint) 1 inch TOPICAL Q6HR [facility] Last Admin: 06/18/18 05:16 Dose: 1 inch Ondansetron HCl (Zofran Inj) 4 mg IV.PUSH Q6H PRN PRN Reason: NAUSEA OR VOMITING Pantoprazole Sodium (Protonix) 20 mg PO DAILY [facility] Quetiapine Fumarate (Seroquel) 50 mg PO BID [facility] Last Admin: 06/17/18 22:01 Dose: 50 mg Sodium Chloride (Ns Flush) 2 ml IV.FLUSH BID [facility] Last Admin: 06/17/18 22:01 Dose: 2 ml Sodium Chloride (Ns Flush) 2 ml IV.FLUSH PRN PRN PRN Reason: FLUSH AFTER USING IV ACCESS Tiotropium [place] (Spiriva 18 Mcg Inh) 18 mcg INH DAILY [facility] Exam Vital signs: Vital Signs 06/17/18 12:04 06/17/18 12:14 06/17/18 13:27 Temperature 98.6 F Pulse Rate 86 70 Respiratory Rate 34 H 22 Blood Pressure 124/60 Pulse Oximetry 100 100 06/17/18 14:05 06/17/18 15:00 06/17/18 16:00 Temperature Pulse Rate 68 66 66 Respiratory Rate 20 17 Blood Pressure 145/78 H 129/74 Pulse Oximetry 99 97 98 06/17/18 18:16 06/17/18 19:25 06/17/18 19:55 Temperature 97.8 F Pulse Rate 80 78 76 Respiratory Rate 16 18 20 Blood Pressure 155/84 H 145/84 H Pulse Oximetry 95 99 06/17/18 21:30 06/17/18 23:24 06/18/18 04:00 Temperature 97.6 F 97.7 F Pulse Rate 84 61 77 Respiratory Rate 20 16 Blood Pressure 152/72 H 144/78 H Pulse Oximetry 96 98 Intake & Output 06/17/18 06/18/18 06/18/18 18:59 06:59 18:59 Weight 72.575 kg 80.9 kg Other: Weight On Admission 80.9 kg Narrative: GENERAL: SKIN: Warm and dry. HEAD: Normocephalic. EYES: No scleral icterus. No injection or drainage. NECK: Supple, trachea midline. No JVD or lymphadenopathy. CARDIOVASCULAR: Regular rate and rhythm without murmurs, gallops, or rubs. RESPIRATORY: Breath sounds equal bilaterally. No accessory muscle use. GASTROINTESTINAL: Abdomen soft, non-tender, nondistended. MUSCULOSKELETAL: No cyanosis, or edema. Results 06/18/18 06:45 06/18/18 06:45 Cardiac Enzymes 06/17/18 06/17/18 06/17/18 Range/Units 13:40 13:40 16:35 AST 29 (15-37) U/L Troponin I 0.28 H 0.30 H (0.02-0.05) ng/mL B-Natriuretic Peptide 16 (0-100) pg/mL 06/18/18 Range/Units 00:07 AST (15-37) U/L Troponin I 0.16 H (0.02-0.05) ng/mL B-Natriuretic Peptide (0-100) pg/mL Coagulation 06/17/18 06/17/18 06/18/18 Range/Units 13:40 18:20 00:07 PT 11.0 (9.8-11.6) sec APTT 24.9 56.5 H D (23.4-31.7) sec B-Natriuretic Peptide 16 (0-100) pg/mL CBC 06/17/18 Range/Units 13:40 WBC 6.1 (4.0-11.0) th/mm3 RBC 4.95 (4.50-5.90) mil/mm3 Hgb 15.9 (13.0-17.0) gm/dL Hct 46.5 (39.0-51.0) % Plt Count 240 (150-450) th/mm3 Neut # (Auto) 3.0 (1.8-7.7) th/mm3 Lymph # (Auto) 2.2 (1.0-4.8) th/mm3 [place] # (Auto) 0.6 (0.0-0.9) th/mm3 Eos # (Auto) 0.3 (0.0-0.4) th/mm3 Baso # (Auto) 0.1 (0.0-0.2) th/mm3 Comprehensive Metabolic Panel 06/17/18 Range/Units 13:40 Sodium 140 (136-145) meq/L Potassium 4.4 (3.5-5.1) meq/L Chloride 108 H (98-107) meq/L Carbon Dioxide 23.9 (21.0-32.0) meq/L BUN 16 (7-18) mg/dL Creatinine 1.19 (0.60-1.30) mg/dL Calcium 9.5 (8.5-10.1) mg/dL AST 29 (15-37) U/L ALT 27 (12-78) U/L Alkaline Phosphatase 100 (45-117) U/L Total Protein 7.7 (6.4-8.2) g/dL Albumin 3.7 (3.4-5.0) g/dL Intake and Output 06/17/18 06/18/18 06/18/18 22:59 06:59 14:59 Other: Weight 80.9 kg Weight On Admission 80.9 kg - Imaging and Cardiology Imaging: Impressions Chest X-Ray 06/17/18 13:27 CONCLUSION: 1. Mild increased interstitial markings are noted bilaterally consistent with acute or chronic interstitial disease. 2. Mild cardiomegaly. Chest CTA 06/17/18 16:00 CONCLUSION: There is no evidence of PE for technique. Assessment and Plan - Assessment (1) NSTEMI (non-ST elevated myocardial infarction) Code(s): I21.4 - Non-ST elevation (NSTEMI) myocardial infarction Status: Acute - Plan 68 yo AAM with no prior cardiac history who is [facility] by [facility] for COPD, PTSD, HTN and HLD who presented to his [facility] doctor yesterday with back pain , during his visit he became very SOB, tachypneic and developed chest pain; he was then referred to the ED for further workup. The patient states he had "9/10 " anterior, sub sternal chest discomfort upon arrival to the ED which has improved to "7/10", chest pain had remained persistent per patient. He reports having had another episode of chest discomfort a few days back. His SOB has improved with breathing treatments and he is currently resting comfortably. Troponin levels minimally elevated 0.16 --> 0.03 --> 0.28. CTA neg for P.E. NSTEMI- patient reports active nonexertional chest pain at rest currently, "". EKG non-ischemic, troponins minimally elevated and remain stable. He will require an ischemic workup to include lexiscan vs. cardiac catheterization. keep npo assess 2D echo check lipid panel - Attending Attestation Non-ST elevation myocardial infarction Plan for cardiac catheterization on Wednesday morning, if recurrent symptoms will proceed with more urgent cardiac catheterization over the weekend. Transthoracic echocardiogram Guideline directed medical therapy. Continue heparin gtt
[2018-06-18 08:39] LABS: Baso % (Auto) 0.5 % (0.0-2.0); Eos # (Auto) 0.1 th/mm3 (0.0-0.4); Eos % (Auto) 3.7 % (0.0-4.0); Hematocrit 41.4 % (39.0-51.0); Hemoglobin 14.2 gm/dL (13.0-17.0); Lymph # (Auto) 1.5 th/mm3 (1.0-4.8); Lymph % (Auto) 39.8 % (9.0-44.0); Mean Corpuscular HGB Conc 34.2 % (32.0-36.0); Mean Corpuscular Hemoglobin 32.2 pg (27.0-34.0); Mean Platelet Volume 8.8 fL (7.0-11.0); Mono # (Auto) 0.4 th/mm3 (0.0-0.9); Mono % (Auto) 9.6 % (0.0-8.0); Neut # (Auto) 1.8 th/mm3 (1.8-7.7); Neut % (Auto) 46.4 % (16.0-70.0); Platelet Count 210 th/mm3 (150-450); White Blood Count 3.9 th/mm3 (4.0-11.0)
--- NOTE | 2018-06-18 09:03 | P.PN ---
Subjective Interval history: Follow-up COPD exacerbation/non-ST elevation [place] June 18, 2018-patient seen and examined, still complains of chest tightness and reports improvement of shortness of breath. Physical Exam Vital signs: Vital Signs 06/17/18 12:04 06/17/18 12:14 06/17/18 13:27 Temperature 98.6 F Pulse Rate 86 70 Respiratory Rate 34 H 22 Blood Pressure 124/60 Pulse Oximetry 100 100 06/17/18 14:05 06/17/18 15:00 06/17/18 16:00 Temperature Pulse Rate 68 66 66 Respiratory Rate 20 17 Blood Pressure 145/78 H 129/74 Pulse Oximetry 99 97 98 06/17/18 18:16 06/17/18 19:25 06/17/18 19:55 Temperature 97.8 F Pulse Rate 80 78 76 Respiratory Rate 16 18 20 Blood Pressure 155/84 H 145/84 H Pulse Oximetry 95 99 06/17/18 21:30 06/17/18 23:24 06/18/18 04:00 Temperature 97.6 F 97.7 F Pulse Rate 84 61 77 Respiratory Rate 20 16 Blood Pressure 152/72 H 144/78 H Pulse Oximetry 96 98 06/18/18 08:00 06/18/18 08:32 Temperature 97.6 F Pulse Rate 68 73 Respiratory Rate 18 18 Blood Pressure 145/81 H Pulse Oximetry 99 Intake & Output 06/17/18 06/18/18 06/18/18 18:59 06:59 18:59 Weight 72.575 kg 80.9 kg Other: Weight On Admission 80.9 kg Narrative: GENERAL: NAD SKIN: Warm and dry. HEAD: Normocephalic. EYES: No scleral icterus. No injection or drainage. NECK: Supple, trachea midline. No JVD or lymphadenopathy. CARDIOVASCULAR: Regular rate and rhythm without murmurs, gallops, or rubs. RESPIRATORY: Breath sounds equal bilaterally. No accessory muscle use. GASTROINTESTINAL: Abdomen soft, non-tender, nondistended. MUSCULOSKELETAL: No cyanosis, or edema. Results - Labs CBC & Chem 7: 06/18/18 06:45 06/17/18 13:40 Laboratory Results - last 24 hr 06/17/18 06/17/18 06/17/18 13:40 13:40 13:40 WBC 6.1 RBC 4.95 Hgb 15.9 Hct 46.5 MCV 93.8 MCH 32.0 MCHC 34.1 RDW 14.2 Plt Count 240 MPV 7.1 Neut % (Auto) 49.4 Lymph % (Auto) 35.4 [place] % (Auto) 9.1 H Eos % (Auto) 4.9 H Baso % (Auto) 1.2 Neut # (Auto) 3.0 Lymph # (Auto) 2.2 [place] # (Auto) 0.6 Eos # (Auto) 0.3 Baso # (Auto) 0.1 WBC Differential . Differential Comment Auto diff final PT INR APTT Puncture Site Patient Temperature O2 Saturation ABG pH ABG pCO2 ABG pO2 ABG HCO3 ABG O2 Content ABG Base Excess ABG Methemoglobin Rod Test Hemoglobin Carboxyhemoglobin O2 Delivery Device Inspired O2 Critical Value Sodium 140 Potassium 4.4 Chloride 108 H Carbon Dioxide 23.9 Anion Gap 8 BUN 16 Creatinine 1.19 Estimated GFR 73 L Random Glucose 94 Calcium 9.5 Total Bilirubin 0.6 AST 29 ALT 27 Alkaline Phosphatase 100 Total Creatine Kinase Troponin I 0.28 H B-Natriuretic Peptide 16 Total Protein 7.7 Albumin 3.7 06/17/18 06/17/18 06/17/18 16:35 18:10 18:20 WBC RBC Hgb Hct MCV MCH MCHC RDW Plt Count MPV Neut % (Auto) Lymph % (Auto) [place] % (Auto) Eos % (Auto) Baso % (Auto) Neut # (Auto) Lymph # (Auto) [place] # (Auto) Eos # (Auto) Baso # (Auto) WBC Differential Differential Comment PT 11.0 INR 1.1 APTT 24.9 Puncture Site Right radial Patient Temperature 98.6 O2 Saturation 90 ABG pH 7.43 H ABG pCO2 38 ABG pO2 64 ABG HCO3 25 ABG O2 Content 20.1 H ABG Base Excess 0.8 ABG Methemoglobin 0.6 Rod Test Present Hemoglobin 15.8 Carboxyhemoglobin 1.9 O2 Delivery Device Room air Inspired O2 21 Critical Value No Sodium Potassium Chloride Carbon Dioxide Anion Gap BUN Creatinine Estimated GFR Random Glucose Calcium Total Bilirubin AST ALT Alkaline Phosphatase Total Creatine Kinase Troponin I 0.30 H B-Natriuretic Peptide Total Protein Albumin 06/18/18 06/18/18 06/18/18 00:07 00:07 06:45 WBC 3.9 L RBC 4.40 L Hgb 14.2 Hct 41.4 MCV 94.0 MCH 32.2 MCHC 34.2 RDW 13.0 Plt Count 210 MPV 8.8 Neut % (Auto) 46.4 Lymph % (Auto) 39.8 [place] % (Auto) 9.6 H Eos % (Auto) 3.7 Baso % (Auto) 0.5 Neut # (Auto) 1.8 Lymph # (Auto) 1.5 [place] # (Auto) 0.4 Eos # (Auto) 0.1 Baso # (Auto) 0.0 WBC Differential . Differential Comment Auto diff final PT INR APTT 56.5 H D Puncture Site Patient Temperature O2 Saturation ABG pH ABG pCO2 ABG pO2 ABG HCO3 ABG O2 Content ABG Base Excess ABG Methemoglobin Rod Test Hemoglobin Carboxyhemoglobin O2 Delivery Device Inspired O2 Critical Value Sodium Potassium Chloride Carbon Dioxide Anion Gap BUN Creatinine Estimated GFR Random Glucose Calcium Total Bilirubin AST ALT Alkaline Phosphatase Total Creatine Kinase 120 Troponin I 0.16 H B-Natriuretic Peptide Total Protein Albumin 06/18/18 06:45 WBC RBC Hgb Hct MCV MCH MCHC RDW Plt Count MPV Neut % (Auto) Lymph % (Auto) [place] % (Auto) Eos % (Auto) Baso % (Auto) Neut # (Auto) Lymph # (Auto) [place] # (Auto) Eos # (Auto) Baso # (Auto) WBC Differential Differential Comment PT INR APTT 35.6 H D Puncture Site Patient Temperature O2 Saturation ABG pH ABG pCO2 ABG pO2 ABG HCO3 ABG O2 Content ABG Base Excess ABG Methemoglobin Rod Test Hemoglobin Carboxyhemoglobin O2 Delivery Device Inspired O2 Critical Value Sodium Potassium Chloride Carbon Dioxide Anion Gap BUN Creatinine Estimated GFR Random Glucose Calcium Total Bilirubin AST ALT Alkaline Phosphatase Total Creatine Kinase Troponin I B-Natriuretic Peptide Total Protein Albumin Microbiology 06/18/18 02:22 Stool Stool Occult Blood ([facility]NE) - Final Hemoccult negative 06/17/18 21:45 Nasal Wash Influenza Types A,B Antigen - Final Negative for FLU A and B antigen Infection due to influenza A or B cannot be ruled out since the antigen present in the sample may be below the detection limit of the test. - Imaging Impressions Chest X-Ray 06/17/18 13:27 CONCLUSION: 1. Mild increased interstitial markings are noted bilaterally consistent with acute or chronic interstitial disease. 2. Mild cardiomegaly. Chest CTA 06/17/18 16:00 CONCLUSION: There is no evidence of PE for technique. Assessment and Plan - Plan 68-year-old man with COPD exacerbation CTA chest without any evidence of PE Patient status post Solu-Medrol 125 mg IV x1 in ED, Decrease Solu-Medrol to 20 mg IV every 12 hours and continue Spiriva, Symbicort, Duo Neb schedule and as needed, Mucinex, azithromycin 250 mg daily Maintain oxygen saturation above 92% Non-ST elevation [place] Appreciate input from cardiology, plan for possible left heart catheterization Continue heparin drip, Nitropaste Check 2D echo, lipid profile Hypertension, hyperlipidemia and other chronic medical conditions Continue outpatient medications DVT prophylaxis: Heparin CMP pending
[2018-06-18 09:15] LABS: Alanine Aminotransferase 49 U/L (12-78); Albumin 3.7 g/dL (3.4-5.0); Alkaline Phosphatase 89 U/L (45-117); Anion Gap 9 meq/L (5-15); Aspartate Aminotransferase 26 U/L (15-37); Blood Urea Nitrogen 10 mg/dL (7-18); Calcium 8.7 mg/dL (8.5-10.1); Carbon Dioxide 26.2 meq/L (21.0-32.0); Chloride 106 meq/L (98-107); Chol/HDL Ratio 3.84 Ratio; Cholesterol 151 mg/dL (120-200); Glomerular Filtration Rate Greater Than 89 mL/min (>89); Glucose,Random 76 mg/dL (74-106); HDL Cholesterol 39.3 mg/dL (40.0-60.0); LDL Cholesterol,Calculated 82 mg/dL (0-99); Potassium 3.9 meq/L (3.5-5.1); Sodium 141 meq/L (136-145); Total Protein 6.8 g/dL (6.4-8.2); Triglycerides 150 mg/dL (42-150)
[2018-06-18] MEDS: QUEtiapine 25 MG Tablet PO SCH ×2 (09:30→21:37)
[2018-06-18] MEDS: Azithromycin 250 MG Tablet PO SCH (09:30)
[2018-06-18] MEDS: Tiotropium Bromide 18 MCG/ACT Inhaler INH SCH (09:30)
[2018-06-18] MEDS: guaiFENesin 600 MG ER Tablet PO SCH ×2 (09:30→21:34)
[2018-06-18] MEDS: Metoprolol Tartrate 25 MG Tablet PO SCH ×2 (09:30→21:36)
[2018-06-18] MEDS: Gabapentin 300 MG Capsule PO SCH ×2 (09:30→21:35)
[2018-06-18] MEDS: Pantoprazole Sodium 20 MG DR Tablet PO SCH (09:30)
[2018-06-18] MEDS: Famotidine 20 MG Tablet PO SCH ×2 (09:30→21:36)
[2018-06-18] MEDS: Budesonide-Formoterol 80/4.5 MCG 6.9 GM Inhaler INH SCH ×2 (09:30→21:34)
[2018-06-18] MEDS: MethylPREDNISolone Sod Succinate Inj 40 MG/ML Vial IV.PUSH SCH ×2 (10:29→21:33)
--- NOTE | 2018-06-18 15:05 | ECG ---
Date Performed: 06/17/2018 Time Performed: 16:48:20 PTAGE: 68 years EKG: Sinus rhythm POSSIBLE LEFT ATRIAL ENLARGEMENT POSSIBLE LEFT VENTRICULAR HYPERTROPHY ABNORMAL ECG PREVIOUS TRACING : 06/17/2018 13.52 Since the previous tracing, no significant change noted DOCTOR: Pearl Hooker Interpretating Date/Time 06/18/2018 15:04:32
--- NOTE | 2018-06-18 15:05 | ECG ---
Date Performed: 06/17/2018 Time Performed: 13:52:10 PTAGE: 68 years EKG: Sinus rhythm POSSIBLE LEFT ATRIAL ENLARGEMENT BORDERLINE ECG PREVIOUS TRACING : 01/09/2013 13.41 Since the previous tracing, no significant change noted DOCTOR: Pearl Hooker Interpretating Date/Time 06/18/2018 15:04:12
--- NOTE | 2018-06-18 15:05 | ECG ---
Date Performed: 06/17/2018 Time Performed: 22:20:40 PTAGE: 68 years EKG: Sinus rhythm LEFT ATRIAL ENLARGEMENT POSSIBLE LEFT VENTRICULAR HYPERTROPHY ABNORMAL ECG PREVIOUS TRACING : 06/17/2018 16.48 Since the previous tracing, no significant change noted DOCTOR: Pearl Hooker Interpretating Date/Time 06/18/2018 15:04:44
[2018-06-18] MEDS: Heparin Drip 25,000 UNIT/250 ML BAG IV.CONT PRN (18:43)
[2018-06-18] MEDS: Mirtazapine 15 MG Tablet PO SCH (21:33)
[2018-06-19 07:51] LABS: Hematocrit 43.6 % (39.0-51.0); Hemoglobin 14.8 gm/dL (13.0-17.0); Mean Corpuscular HGB Conc 33.9 % (32.0-36.0); Mean Corpuscular Hemoglobin 32.1 pg (27.0-34.0); Mean Corpuscular Volume 94.7 fL (80.0-100.0); Mean Platelet Volume 7.4 fL (7.0-11.0); Platelet Count 227 th/mm3 (150-450); Red Cell Distribution Width 14.4 % (11.6-17.2); White Blood Count 10.9 th/mm3 (4.0-11.0)
--- NOTE | 2018-06-19 07:59 | P.PNCA ---
Subjective Interval history: patient receiving nebulizer treatment at time of visit. He reports continued chest tightness, constant in nature with mild improvement. SOB improved with neb treatments. No events on telemetry Medications and Allergies Allergies Allergy/AdvReac Type Severity Reaction Status Date / Time baclofen Allergy Unknown Unverified 01/19/17 20:13 etodolac Allergy Unknown Unverified 01/19/17 20:13 tramadol AdvReac Unknown Unverified 01/19/17 20:13 Home Medications Medication Instructions Recorded Confirmed Type gabapentin 600 mg PO BID 06/17/18 06/17/18 History hydrochlorothiazide 12.5 mg PO DAILY 06/17/18 06/17/18 History metoprolol tartrate 12.5 mg PO BID 06/17/18 06/17/18 History mirtazapine 45 mg PO HS 06/17/18 06/17/18 History multivitamin with minerals 1 cap PO DAILY 06/17/18 06/17/18 History niacin 500 mg PO HS 06/17/18 06/17/18 History omeprazole 20 mg PO DAILY 06/17/18 06/17/18 History quetiapine 50 mg PO BID 06/17/18 06/17/18 History sildenafil 50 mg PO QWEEK PRN 06/17/18 06/17/18 History Active Medications: Active Medications Acetaminophen (Tylenol) 650 mg PO Q4H PRN PRN Reason: Temp > 100.4 Last Admin: 06/17/18 23:18 Dose: 650 mg Al Hydroxide/Mg Hydroxide (Milk Of Rajat Haines) 30 ml PO Q12H PRN PRN Reason: Mild Constipation Albuterol (Duoneb Neb (Prn)) 1 ampul NEB Q2HR NEB PRN PRN Reason: SHORTNESS OF BREATH Albuterol (Duoneb Neb (Anibal)) 1 ampul NEB Q6HR WHILE AWAKE NEB [facility] [place] Last Admin: 06/19/18 07:47 Dose: 1 ampul Aspirin (Ecotrin) 81 mg PO DAILY [facility] [place] Last Admin: 06/18/18 11:47 Dose: 81 mg Atorvastatin Calcium (Lipitor) 80 mg PO HS [facility] [place] Last Admin: 06/18/18 21:35 Dose: 80 mg Azithromycin (Zithromax) 250 mg PO DAILY [facility] [place] Last Admin: 06/18/18 09:30 Dose: 250 mg Budesonide/Formoterol Fumarate (Symbicort 80/4.5 Mcg Inh) 1 puff INH BID [facility] [place] Last Admin: 06/18/18 21:34 Dose: 1 puff Famotidine (Pepcid) 20 mg PO BID [facility] [place] Last Admin: 06/18/18 21:36 Dose: 20 mg Gabapentin (Neurontin) 600 mg PO BID [facility] [place] Last Admin: 06/18/18 21:35 Dose: 600 mg Guaifenesin (Mucinex Er) 600 mg PO BID [facility] [place] Last Admin: 06/18/18 21:34 Dose: 600 mg Hydrochlorothiazide (Microzide) 12.5 mg PO DAILY [facility] [place] Last Admin: 06/18/18 09:30 Dose: 12.5 mg Heparin Sodium/Dextrose (Heparin/D5w 25,000 U/250 Ml) 25,000 unit in 250 mls @ 0 mls/hr IV.CONT TITRATE PRN; Protocol PRN Reason: Per Protocol Last Admin: 06/18/18 18:43 Dose: 1,000 units/hr, 10 mls/hr Methylprednisolone Sodium Succinate (Solumedrol Inj) 20 mg IV.PUSH Q12HR [facility] [place] Last Admin: 06/18/18 21:33 Dose: 20 mg Metoprolol Tartrate (Lopressor) 12.5 mg PO BID [facility] [place] Last Admin: 06/18/18 21:36 Dose: 12.5 mg Mirtazapine (Remeron) 45 mg PO HS [facility] [place] Last Admin: 06/18/18 21:33 Dose: 45 mg Naloxone HCl (Narcan Inj) 0.4 mg IV.PUSH UNSCH PRN PRN Reason: SEE LABEL COMMENTS Niacin (Slo-Niacin) 500 mg PO HS [facility] [place] Last Admin: 06/18/18 21:34 Dose: 500 mg Nitroglycerin (Nitro-Bid 2% Oint) 1 inch TOPICAL Q6HR [facility] [place] Last Admin: 06/19/18 07:09 Dose: 1 inch Ondansetron HCl (Zofran Inj) 4 mg IV.PUSH Q6H PRN PRN Reason: NAUSEA OR VOMITING Pantoprazole Sodium (Protonix) 20 mg PO DAILY [facility] [place] Last Admin: 06/18/18 09:30 Dose: 20 mg Quetiapine Fumarate (Seroquel) 50 mg PO BID [facility] [place] Last Admin: 06/18/18 21:37 Dose: 50 mg Sodium Chloride (Ns Flush) 2 ml IV.FLUSH BID [facility] [place] Last Admin: 06/18/18 21:36 Dose: 2 ml Sodium Chloride (Ns Flush) 2 ml IV.FLUSH PRN PRN PRN Reason: FLUSH AFTER USING IV ACCESS Tiotropium [place] (Spiriva 18 Mcg Inh) 18 mcg INH DAILY [facility] [place] Last Admin: 06/18/18 09:30 Dose: 18 mcg Physical Exam Vital signs: Vital Signs 06/18/18 08:00 06/18/18 08:32 06/18/18 11:31 Temperature 97.6 F 98.0 F Pulse Rate 64 73 69 Respiratory Rate 18 18 18 Blood Pressure 145/81 H 161/83 H Pulse Oximetry 99 95 06/18/18 15:56 06/18/18 19:56 06/18/18 20:04 Temperature 98.1 F 98.1 F Pulse Rate 75 77 76 Respiratory Rate 18 24 18 Blood Pressure 136/66 138/65 Pulse Oximetry 96 96 06/18/18 23:51 06/19/18 03:25 06/19/18 04:00 Temperature 98.2 F 97.9 F Pulse Rate 70 86 73 Respiratory Rate 16 16 Blood Pressure 133/76 135/84 Pulse Oximetry 96 98 06/19/18 07:46 Temperature Pulse Rate 73 Respiratory Rate 18 Blood Pressure Pulse Oximetry Intake & Output 06/18/18 06/19/18 06/19/18 18:59 06:59 18:59 Intake Total 250 / 250 Balance 250 / 250 Intake: IV 250 / 250 Heparin/D5W 25,000 U/250 mL 25, 250 / 250 000 unit In 250 ml @ Per Protocol IV.CONT TITRATE PRN Rx #:[id number] Narrative: GENERAL: SKIN: Warm and dry. HEAD: Normocephalic. EYES: No scleral icterus. No injection or drainage. NECK: Supple, trachea midline. No JVD or lymphadenopathy. CARDIOVASCULAR: Regular rate and rhythm without murmurs, gallops, or rubs. RESPIRATORY: bilateral exp wheeze. No accessory muscle use. GASTROINTESTINAL: Abdomen soft, non-tender, nondistended. MUSCULOSKELETAL: No cyanosis, or edema. Results 06/19/18 05:50 06/18/18 06:45 Cardiac Enzymes 06/17/18 06/17/18 06/17/18 Range/Units 13:40 13:40 16:35 AST 29 (15-37) U/L Troponin I 0.28 H 0.30 H (0.02-0.05) ng/mL B-Natriuretic Peptide 16 (0-100) pg/mL 06/18/18 06/18/18 Range/Units 00:07 06:45 AST 26 (15-37) U/L Troponin I 0.16 H (0.02-0.05) ng/mL B-Natriuretic Peptide (0-100) pg/mL Coagulation 06/17/18 06/17/18 06/18/18 Range/Units 13:40 18:20 00:07 PT 11.0 (9.8-11.6) sec APTT 24.9 56.5 H D (23.4-31.7) sec B-Natriuretic Peptide 16 (0-100) pg/mL 06/18/18 06/18/18 06/18/18 Range/Units 06:45 15:30 21:19 PT (9.8-11.6) sec APTT 35.6 H D 48.9 H D 45.0 H (23.4-31.7) sec B-Natriuretic Peptide (0-100) pg/mL Lipids 06/18/18 Range/Units 06:45 Triglycerides 150 (42-150) mg/dL Cholesterol 151 (120-200) mg/dL HDL Cholesterol 39.3 L (40.0-60.0) mg/dL Cholesterol/HDL Ratio 3.84 Ratio CBC 06/17/18 06/18/18 06/19/18 Range/Units 13:40 06:45 05:50 WBC 6.1 3.9 L 10.9 D (4.0-11.0) th/mm3 RBC 4.95 4.40 L 4.60 (4.50-5.90) mil/mm3 Hgb 15.9 14.2 14.8 (13.0-17.0) gm/dL Hct 46.5 41.4 43.6 (39.0-51.0) % Plt Count 240 210 227 (150-450) th/mm3 Neut # (Auto) 3.0 1.8 (1.8-7.7) th/mm3 Lymph # (Auto) 2.2 1.5 (1.0-4.8) th/mm3 [place] # (Auto) 0.6 0.4 (0.0-0.9) th/mm3 Eos # (Auto) 0.3 0.1 (0.0-0.4) th/mm3 Baso # (Auto) 0.1 0.0 (0.0-0.2) th/mm3 Comprehensive Metabolic Panel 06/17/18 06/18/18 Range/Units 13:40 06:45 Sodium 140 141 (136-145) meq/L Potassium 4.4 3.9 (3.5-5.1) meq/L Chloride 108 H 106 (98-107) meq/L Carbon Dioxide 23.9 26.2 (21.0-32.0) meq/L BUN 16 10 (7-18) mg/dL Creatinine 1.19 0.74 (0.60-1.30) mg/dL Calcium 9.5 8.7 D (8.5-10.1) mg/dL AST 29 26 (15-37) U/L ALT 27 49 (12-78) U/L Alkaline Phosphatase 100 89 (45-117) U/L Total Protein 7.7 6.8 D (6.4-8.2) g/dL Albumin 3.7 3.7 (3.4-5.0) g/dL Intake and Output 06/18/18 06/19/18 06/19/18 22:59 06:59 14:59 Intake Total 150 / 150 Balance 150 / 150 Intake: IV 150 / 150 Heparin/D5W 25,000 U/250 mL 25, 150 / 150 000 unit In 250 ml @ Per Protocol IV.CONT TITRATE PRN Rx #:[id number] - Imaging and Cardiology Imaging: Impressions Chest X-Ray 06/17/18 13:27 CONCLUSION: 1. Mild increased interstitial markings are noted bilaterally consistent with acute or chronic interstitial disease. 2. Mild cardiomegaly. Chest CTA 06/17/18 16:00 CONCLUSION: There is no evidence of PE for technique. Assessment and Plan - Assessment (1) NSTEMI (non-ST elevated myocardial infarction) Code(s): I21.4 - Non-ST elevation (NSTEMI) myocardial infarction Status: Acute - Plan 68 yo AAM with no prior cardiac history who is treated by the MI clinic for COPD, PTSD, HTN and HLD who presented to his MI doctor Wednesday with back pain, during his visit he became very SOB, tachypneic and developed chest pain; he was then referred to the ED for further workup. The patient states he had "9/10 " anterior, sub sternal chest discomfort upon arrival to the ED which has improved but remains persistent. He reports having had another episode of chest discomfort a few days back. His SOB has improved with breathing treatments and he is currently resting comfortably. Troponin levels minimally elevated 0.16 -- > 0.03 --> 0.28. CTA neg for P.E. NSTEMI- plan for cardiac catheterization tomorrow morning keep npo after midnight cont asa, statin, metoprolol as part of guideline directed medical therapy echo ordered cont heparin gtt COPD exacerbation- nebulizer treatments, antibiotic - Attending Attestation NPO p MN C tomorrow am
[2018-06-19] MEDS: Azithromycin 250 MG Tablet PO SCH (08:39)
[2018-06-19] MEDS: QUEtiapine 25 MG Tablet PO SCH ×2 (08:40→20:34)
[2018-06-19] MEDS: Famotidine 20 MG Tablet PO SCH ×2 (08:40→20:36)
[2018-06-19] MEDS: guaiFENesin 600 MG ER Tablet PO SCH ×2 (08:40→20:35)
[2018-06-19] MEDS: Metoprolol Tartrate 25 MG Tablet PO SCH ×2 (08:40→20:35)
[2018-06-19] MEDS: Gabapentin 300 MG Capsule PO SCH ×2 (08:41→20:33)
[2018-06-19] MEDS: Pantoprazole Sodium 20 MG DR Tablet PO SCH (08:41)
[2018-06-19] MEDS: Budesonide-Formoterol 80/4.5 MCG 6.9 GM Inhaler INH SCH ×2 (08:42→20:37)
[2018-06-19] MEDS: Tiotropium Bromide 18 MCG/ACT Inhaler INH SCH (08:42)
--- NOTE | 2018-06-19 08:43 | ECHRPT ---
Indication: CHEST PAIN CONCLUSIONS Normal left ventricular size. Mild concentric left ventricular hypertrophy. The left ventricular systolic function is normal with an estimated ejection fraction in the range of 60-65%. Calcification of the anterior mitral valve leaflet. There is trace tricuspid valve regurgitation. The estimated pulmonary arterial pressure is 35mmHg. BP: / HR: Rhythm: Sinus MEASUREMENTS (Male / Female) Normal Values Technical Quality:Fair 2D ECHO LV Diastolic Diameter PLAX 4.6 cm 4.2 - 5.9 / 3.9 - 5.3 cm LV Systolic Diameter PLAX 3.1 cm IVS Diastolic Thickness 1.1 cm 0.6 - 1.0 / 0.6 - 0.9 cm LVPW Diastolic Thickness 1.1 cm 0.6 - 1.0 / 0.6 - 0.9 cm LV Relative Wall Thickness 0.5 RV Internal Dim ED PLAX 3.0 cm LVOT Diameter 2.0 cm Aortic Root Diameter 3.3 cm LA Systolic Diameter LX 3.0 cm 3.0 - 4.0 / 2.7 - 3.8 cm LV Ejection Fraction MOD 4C 43.3 % LV Ejection Fraction 4C AL 44.6 % DOPPLER AV Peak Velocity 179.0 cm/s AV Peak Gradient 12.8 mmHg LVOT Peak Velocity 118.0 cm/s LVOT Peak Gradient 5.6 mmHg AV Area Cont Eq pk 2.1 cm Mitral E Point Velocity 56.3 cm/s Mitral A Point Velocity 87.4 cm/s Mitral E to A Ratio 0.6 LV E' Lateral Velocity 8.1 cm/s Mitral E to LV E' Lateral Ratio 7.0 LV E' Septal Velocity 6.2 cm/s Mitral E to LV E' Septal Ratio 9.0 TR Peak Velocity 252.0 cm/s TR Peak Gradient 25.0 mmHg Right Atrial Pressure 10.0 mmHg Pulmonary Artery Systolic Pressu 35.4 mmHg Right Ventricular Systolic Press 35.4 mmHg PV Peak Velocity 111.0 cm/s PV Peak Gradient 4.9 mmHg FINDINGS LEFT VENTRICLE Normal left ventricular size. Mild concentric left ventricular hypertrophy. The left ventricular systolic function is normal with an estimated ejection fraction in the range of 60-65%. RIGHT VENTRICLE Normal right ventricular size and systolic function. LEFT ATRIUM The left atrial size is normal. RIGHT ATRIUM The right atrial size is normal. ATRIAL SEPTUM Normal atrial septal thickness without atrial level shunting by limited color doppler interrogation. AORTA The aortic root and proximal ascending aorta are normal in size on limited imaging. MITRAL VALVE Calcification of the anterior mitral valve leaflet. AORTIC VALVE Trileaflet aortic valve. No aortic valve stenosis or regurgitation. TRICUSPID VALVE There is trace tricuspid valve regurgitation. The estimated pulmonary arterial pressure is 35mmHg. PULMONARY VALVE No pulmonary valve regurgitation or stenosis. VESSELS The inferior vena cava is normal in size. PERICARDIUM No pericardial effusion. Tai Schulte MD (Electronically Signed) Final Date:19 June 2018 08:42
--- NOTE | 2018-06-19 08:45 | P.PN ---
Subjective Interval history: Follow-up COPD exacerbation/non-ST elevation [place] June 18, 2018-patient seen and examined, still complains of chest tightness and reports improvement of shortness of breath. June 19, 2018-patient seen and examined, still has chest tightness, improvement of shortness of breath. No dizziness. Plan for heart catheterization June 20, 2018 Physical Exam Vital signs: Vital Signs 06/18/18 11:31 06/18/18 15:56 06/18/18 19:56 Temperature 98.0 F 98.1 F 98.1 F Pulse Rate 69 75 77 Respiratory Rate 18 18 24 Blood Pressure 161/83 H 136/66 138/65 Pulse Oximetry 95 96 96 06/18/18 20:04 06/18/18 23:51 06/19/18 03:25 Temperature 98.2 F 97.9 F Pulse Rate 76 70 86 Respiratory Rate 18 16 16 Blood Pressure 133/76 135/84 Pulse Oximetry 96 98 06/19/18 04:00 06/19/18 07:46 06/19/18 08:00 Temperature 98.3 F Pulse Rate 73 73 86 Respiratory Rate 18 16 Blood Pressure 162/92 H Pulse Oximetry 96 Intake & Output 06/18/18 06/19/18 06/19/18 18:59 06:59 18:59 Intake Total 250 / 250 Balance 250 / 250 Intake: IV 250 / 250 Heparin/D5W 25,000 U/250 mL 25, 250 / 250 000 unit In 250 ml @ Per Protocol IV.CONT TITRATE PRN Rx #:[id number] Narrative: GENERAL: NAD SKIN: Warm and dry. HEAD: Normocephalic. EYES: No scleral icterus. No injection or drainage. NECK: Supple, trachea midline. No JVD or lymphadenopathy. CARDIOVASCULAR: Regular rate and rhythm without murmurs, gallops, or rubs. RESPIRATORY: bilateral exp wheeze. No accessory muscle use. GASTROINTESTINAL: Abdomen soft, non-tender, nondistended. MUSCULOSKELETAL: No cyanosis, or edema. Results - Labs CBC & Chem 7: 06/19/18 05:50 06/18/18 06:45 Laboratory Results - last 24 hr 06/18/18 06/18/18 06/18/18 06:45 06:45 15:30 WBC RBC Hgb Hct MCV MCH MCHC RDW Plt Count MPV APTT 35.6 H D 48.9 H D Sodium 141 Potassium 3.9 Chloride 106 Carbon Dioxide 26.2 Anion Gap 9 BUN 10 Creatinine 0.74 Estimated GFR Greater than 89 Random Glucose 76 Calcium 8.7 D Total Bilirubin 0.9 AST 26 ALT 49 Alkaline Phosphatase 89 Total Protein 6.8 D Albumin 3.7 Triglycerides 150 Cholesterol 151 LDL Cholesterol, Calc 82 HDL Cholesterol 39.3 L Cholesterol/HDL Ratio 3.84 06/18/18 06/19/18 06/19/18 21:19 05:50 05:50 WBC 10.9 D RBC 4.60 Hgb 14.8 Hct 43.6 MCV 94.7 MCH 32.1 MCHC 33.9 RDW 14.4 Plt Count 227 MPV 7.4 APTT 45.0 H 52.9 H Sodium Potassium Chloride Carbon Dioxide Anion Gap BUN Creatinine Estimated GFR Random Glucose Calcium Total Bilirubin AST ALT Alkaline Phosphatase Total Protein Albumin Triglycerides Cholesterol LDL Cholesterol, Calc HDL Cholesterol Cholesterol/HDL Ratio Assessment and Plan - Plan 68-year-old man with COPD exacerbation-resolved CTA chest without any evidence of PE Patient status post Solu-Medrol 125 mg IV x1 in ED, d/c Solu-Medrol to 20 mg IV every 12 hours; start prednisone 20 mg daily and continue Spiriva, Symbicort, Duo Neb schedule and as needed, Mucinex, azithromycin 250 mg daily Maintain oxygen saturation above 92% Non-ST elevation [place] Appreciate input from cardiology, plan for left heart catheterization June 20, 2018 Continue heparin drip, Nitropaste, beta-yariel, aspirin 2D echo with EF 60-65% Hypertension, hyperlipidemia and other chronic medical conditions Continue outpatient medications DVT prophylaxis: Heparin CMP pending
[2018-06-19] MEDS: predniSONE 20 MG Tablet PO SCH (08:52)
[2018-06-19] MEDS: Heparin Drip 25,000 UNIT/250 ML BAG IV.CONT PRN (15:05)
[2018-06-19] MEDS: Mirtazapine 15 MG Tablet PO SCH (20:33)
[2018-06-20 07:56] VITALS: TEMP 98
[2018-06-20] MEDS: guaiFENesin 600 MG ER Tablet PO SCH (08:05)
[2018-06-20] MEDS: predniSONE 20 MG Tablet PO SCH (08:05)
[2018-06-20] MEDS: QUEtiapine 25 MG Tablet PO SCH (08:05)
[2018-06-20] MEDS: Gabapentin 300 MG Capsule PO SCH (08:05)
[2018-06-20] MEDS: Famotidine 20 MG Tablet PO SCH (08:06)
[2018-06-20] MEDS: Pantoprazole Sodium 20 MG DR Tablet PO SCH (08:06)
[2018-06-20] MEDS: Metoprolol Tartrate 25 MG Tablet PO SCH (08:06)
[2018-06-20] MEDS: Azithromycin 250 MG Tablet PO SCH (08:06)
[2018-06-20] MEDS ORDERED: Heparin/NS PF Inj 1,000 ML ONE (08:36)
[2018-06-20] MEDS ORDERED: Heparin 10,000 UNITS/10 ML Vial (for IV use) ONE (08:37)
[2018-06-20] MEDS ORDERED: fentaNYL Citrate Inj 100 MCG/2 ML Ampul ONE (08:37)
[2018-06-20 08:45] LABS: Hemoglobin 16.6 gm/dL (13.0-17.0); Mean Corpuscular HGB Conc 34.6 % (32.0-36.0); Mean Corpuscular Hemoglobin 32.7 pg (27.0-34.0); Mean Corpuscular Volume 94.5 fL (80.0-100.0); Mean Platelet Volume 7.3 fL (7.0-11.0); Platelet Count 249 th/mm3 (150-450); Red Blood Count 5.08 mil/mm3 (4.50-5.90); Red Cell Distribution Width 14.5 % (11.6-17.2); White Blood Count 9.5 th/mm3 (4.0-11.0)
[2018-06-20] MEDS ORDERED: Iohexol 350 MG/ML 100 ML Vial (for Cath Lab) IVCONTRAST ONE (09:00)
--- NOTE | 2018-06-20 09:30 | CATHPROC ---
[employer] HIS Report Study Information Study Number Admission Scheduled Start Study Start [id number] Jun 17 2018 5:36PM 06/20/2018 Jun 20 2018 8:20AM [place] [facility] Cath Endovascular Study Admit Source Facility Department Emergency department [facility] - Title Agent Physician and Clinical Staff Initial Ron Ferrera Fire Investigation Manager Naldo Morrison,RN Recorder Edda Wylie,RT(R) Scrub Agnieszka Thomas Procedures Performed Procedure Location (Site) Vessel Name Coronary Angiograms LCA Left Coronary Coronary Angiograms RCA Right Coronary L Heart Cath PTCA ADD ON'S Stent CIRC Mid CIRC Wire insertion Radial (right) Radial Art. Equipment Time Complex Human Resources Manager Description Size Mfg Part Number Used/Scraped TRANSDUCER, PREETI [id number] 08:44 SLOAN RUCKER * Used W/STOCKPrysmCK *[id number] *[id number] *[id number] 08:44 [email or web address] BLANKET,WARM AIR CCL * Used *[id number] 08:44 [email or web address] PACK, CCL CUSTOM * Used *[id number] 08:44 [email or web address] SUPPORT, ARTERIAL ADULT [id number] *[id number] Used BALLOON, 2.5 X 6MM NC [id number] 09:18 MEDTRONIC 6MM Used EUPHORA *[id number] 08:56 MEDTRONIC JL 3.5 DXTERITY CATHETER FR 5 Used *[id number] 09:14 MEDTRONIC STENT, 2.25 14 INTEGRITY 2.25 14 Used *[id number] 09:07 [employer] 30 KALEIGH INDEFLATOR Used *[id number] BAND, RADIAL COMPRESSION TR [id number] 09:22 [employer] 24CM Used SHORT 24 *[id number] BAND, RADIAL COMPRESSION TR [id number] 09:23 [employer] 24CM Used SHORT 24 *[id number] SHEATH, FR6 RADIAL PRELUDE 08:44 [employer] FR 6 [id number] Used EASE 11CM [id number] 08:44 [employer] WIRE, EXCHANGE 260CM 3MMJ 260CM Used *[id number] 08:44 NAMIC MANIFOLD, 4 PORT * Used *[id number] 08:44 NYCOMED OMNIPAQUE, 350 MG, 150ML 150ML [id number] Used 09:07 NYCOMED OMNIPAQUE, 350 MG, 150ML 150ML [id number] Used WIRE, RUNTHROUGH NS FLOPPY -1011 09:11 Sport Ngin 180CM Used .014 180CM *[id number] Equipment Model, Serial, Lot Number and Expiration Data Description Model Number Serial Number Lot Number Expiration Date BALLOON, 2.5 X 6MM GA OLINDA [id number] 02-10-2019 STENT, 2.25 14 INTEGRITY [id number] 10-21-2019 History: Current Medications Medication Dosage/Unit Route Frequency Last Date/Time Taken ASA Statins (any) 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 History: Risk Factors Family History of Hypertension Dyslipidemia Previous OK Previous Heart Failure Premature CAD Yes Yes No No No Prior Valve Prior PCI Prior CABG Surgery No No No Cerebrovascular Peripheral Artery Chronic Lung On Dialysis Diabetes Disease Disease Disease No No No Yes No History: Symptoms/Diagnosis Selection Items Chest pain History: Stress Tests Stress or Imaging Studies Performed Yes Standard Exercise Stress Test No Stress Echo No Stress Test SPECT Stress Test SPECT Result Stress Test SPECT Ischemia Risk/Extent Yes Positive Intermediate Stress Test CMR No Cardiac CTA Coronary Calcium Score No No Labs Hgb (g/dl) Hct (%) WBC (l/cumm) Platelets (thousands) 11.60-17.00 35.00-51.00 4.00-11.00 150.00-450.00 14.8 43.6 10.9 227 Glucose (mg/dl) BUN (mg/dl) Creatinine (mg/dl) BUN:Creatinine (1:x) 74.00-106.00 7.00-18.00 0.50-1.30 10.00-20.00 76 10 0.7 14.3 Na (meq/l) K (meq/l) 136.00-145.00 3.50-5.10 141 3.9 Troponin I (ng/ml) CPK (u/l) CPK-MB (ng/ML) 0.02-0.05 26.00-308.00 0.50-3.60 0.16 120 Not Drawn Medication Medication Total Dose (Bolus/Oral) Medication Total Dosage/Unit 1% XYLOCAINE 20 mL ANGIOMAX BOLUS 12 mL FENTANYL 50 mcg HEPARIN 5000 units PLAVIX 600 mg RADIAL COCKTAIL 5 mL (Bolus) VERSED 2 mg Medications (Bolus/Oral) Medication Time Given Dosage/Unit Administered By Reason 1% XYLOCAINE 06/20/2018 8:58:04 AM 20 mL Ron Rojas 20 mL 1% XYLOCAINE given in lab by Ron Rojas in Right Radial via Subcutaneous. VERSED 06/20/2018 8:58:20 AM 2 mg Naldo Morrison 2 mg VERSED given in lab by Naldo Morrison RN via Peripheral IV. RADIAL COCKTAIL 06/20/2018 8:59:16 AM 5 mL (Bolus) Ron Rojas 5 mL (Bolus) RADIAL COCKTAIL given in lab by Ron Rojas via Radial. Using [Solution Name]. 200 ni tro FENTANYL 06/20/2018 8:59:27 AM 50 mcg Naldo Morirson 50 mcg FENTANYL given in lab by Naldo Morrison RN via Peripheral IV. HEPARIN 06/20/2018 9:00:29 AM 5000 units Naldo Morrison 5000 units HEPARIN given in lab by Naldo Morrison RN via Peripheral IV. ANGIOMAX BOLUS 06/20/2018 9:08:21 AM 12 mL Naldo Morrison 12 mL ANGIOMAX BOLUS given in lab by Naldo Morrison RN via Peripheral IV. PLAVIX 06/20/2018 9:29:03 AM 600 mg Naldo Morrison 600 mg PLAVIX given in lab by Naldo Morrison RN via Oral. Medication (Drip) Medication Time Given Dosage/Unit Concentration/Unit Diluent (ml) Solutio n ANGIOMAX DRIP 06/20/2018 9:15:02 AM 1.731 mg/kg/hr 250 mg 50 NaCl .9 1.731 mg/kg/hr ANGIOMAX DRIP given in lab by Naldo Morrison RN via Peripheral IV. Pump/Drip Flow = 28 ml/hr using NaCl .9 with a concentration of 250 mg in 50 ml. IV Solutions 06/20/2018 8:51:17 AM 0 mL (IV) 500 NaCl .9 Patient arrived on IV Solutions in Left Wrist via Peripheral IV. Pump/Drip Flow = 20 ml/hr using NaCl .9. Initial Case Assessment Cardiovascular HR Rhythm NIBP Chest Pain 84 reg 142/90 0 Edema Present Skin color Skin None Normal Warm Circulatory - Right Pulses Dorsalis Pedis Femoral Radial 3 1 3 Scale (0,1,2,3,4,d) Circulatory - Left Pulses Dorsalis Pedis Femoral Radial 3 Scale (0,1,2,3,4,d) Circulatory - Lower Extremities Color Lower Right Normal Neurological State Oriented to time-place- Alert Moves all extremities person Respiration - General Respiration Rate SpO2 (%) (B/min) 12 99 Final Case Assessment Cardiovascular HR Rhythm NIBP Chest Pain 81 reg 124/72 0 Edema Present Skin color Skin None Normal Warm Circulatory - Right Pulses Dorsalis Pedis Femoral Radial 3 1 3 Scale (0,1,2,3,4,d) Scale (0,1,2,3,4,d) Circulatory - Lower Extremities Color Lower Right Normal Neurological State Oriented to time-place- Alert Moves all extremities person Respiration - General Respiration Rate SpO2 (%) (B/min) 11 95 Chronological Log Time Study Chronological Log 8:21:44 Patient arrived via Bed. 8:21:49 Patient Name, D.O.B, / Armband Verified By R.N. 8:21:50 Consent signed by the physician and the patient and verified by the Title Agent staff. 8:21:52 Pre-op and post- op instructions given; patient acknowledges understanding of instructions. Vitals capture started with the following parameters, Patient=Adult, Interval=5 min, Initial Pr ahzxrx=441 mmHg, 8:34:32 Deflation Rate=5 mmHg, Cuff placed on Left Arm 8:35:14 HR=97 bpm, UDEZ=822/97 mmhg, SpO2=95.0 %, Resp=21 B/min, Pain=0, Spencer=10, Duron=2 8:40:17 HR=87 bpm, HLGG=156/104 mmhg, SpO2=95.0 %, Resp=15 B/min, Pain=0, Spencer=10, Duron=2 8:43:36 Reference ECG taken 8:45:14 HR=85 bpm, QEUO=511/93 mmhg, SpO2=95.0 %, Resp=16 B/min, Pain=0, Spencer=10, Duron=2 8:46:29 Patient has been NPO for More than 6Hrs. 8:46:31 Skin Breakdown-NONE 8:46:42 Allens test performed on the right radial and ulnar artery by marvin lentz with a positive resu lt 8:47:22 Pressure channel 1 zeroed. 8:50:11 HR=90 bpm, OISE=559/90 mmhg, SpO2=94.0 %, Resp=35 B/min, Pain=0, Spencer=10, Duron=2 8:50:57 A # 20 IV was noted in the Antecubital (right). Grade = 0 8:51:17 Patient arrived on IV Solutions in Left Wrist via Peripheral IV. Pump/Drip Flow = 20 ml/hr using NaCl .9. 8:52:05 A # 20 IV was noted in the Wrist LT. Grade = 0 8:52:20 History and physical on the chart or being dictated. Assessment: Initial Case, HR=84 BPM, Rhythm=reg, KTZM=435/90 mmhg, Chest Pain=0, Edema=None, Col or=Normal, Skin = Warm Right Pulses: Eros Ped=3, Femoral=1, Radial=3 8:52:21 Left Pulses: Eros Ped=3 Lower Right Extremities: Color=Normal Neurological: State=Alert, Ox3, ESPINOSA Respiration: Resp=12 B/min, SpO2=99 % 8:53:03 Right Radial and groin(s) prepped with 2% chlorhexidine, and draped after a 3 min. waiting t ok. 8:53:07 MD arrived. Time Out. Correct patient, correct procedure, correct physician, labs, allergies, and equipment verified with poultry farm laborer 8:54:42 team present. Fire risk assesment completed (see hard stop sheet for coding). Time Out Concu rred by MD and individual staff in procedure. 8:55:16 HR=96 bpm, LQQW=329/82 mmhg, SpO2=92.0 %, Resp=14 B/min, Pain=0, Spencer=10, Duron=2 8:56:28 Case Start 8:56:29 Verbal Stimulation=2 Physical Stimulation=2 Airway=2 Respiration=2 TOTAL=8. (0=absent, 1=ariza ited, 2=present) 8:58:04 20 mL 1% XYLOCAINE given in lab by Ron Rojas in Right Radial via Subcutaneous. 8:58:20 2 mg VERSED given in lab by Naldo Morrison, RN via Peripheral IV. 8:58:47 Access site was Right Radial Artery . 8:58:52 A wire was inserted via Radial (right). A SHEATH, FR6 RADIAL PRELUDE EASE 11CM FR 6 was advanced into the Radial (right) using the Percu taneous 8:59:01 technique. 8:59:16 5 mL (Bolus) RADIAL COCKTAIL given in lab by Ron Rojas via Radial. Using [Solution Name ]. 200 nitro 8:59:27 50 mcg FENTANYL given in lab by Naldo Morrison RN via Peripheral IV. 9:00:11 HR=92 bpm, SEJU=107/90 mmhg, SpO2=95.0 %, Resp=20 B/min, Pain=0, Spencer=10, Duron=2 9:00:29 5000 units HEPARIN given in lab by Naldo Morrison RN via Peripheral IV. Recorded Pressure: Ao, HR=95, Condition=Condition 1 9:00:57 (Aorta) Ao 129/83/103 A JR 5.0 INFINITI CATHETER FR 5 was advanced over a wire. OMNIPAQUE, 350 MG, 150ML 150ML was use d for 9:01:22 injections. 9:01:28 The RCA was injected and visualized at various angles. OMNIPAQUE, 350 MG, 150ML 150ML used. Recorded Pressure: LV, HR=93, Condition=Condition 1 9:02:28 (Left Ventricle) LV 124/1/2 Recorded Pressure: LV, Ao, HR=93, Condition=Condition 1 9:02:41 (Left Ventricle) LV 124/2/4, (Aorta) Ao 115/70/89 A JL 3.5 DXTERITY CATHETER FR 5 was advanced over a wire. OMNIPAQUE, 350 MG, 150ML 150ML was use d for 9:03:05 injections. 9:04:20 The LCA was injected and visualized at various angles. OMNIPAQUE, 350 MG, 150ML 150ML used. 9:05:16 HR=92 bpm, APJN=546/59 mmhg, SpO2=90 %, Resp=14 B/min, Pain=0, Spencer=10, Duron=2 9:05:44 Catheter was removed 9:05:51 OMNIPAQUE, 350 MG, 150ML 150ML and 30 KALEIGH INDEFLATOR added. 9:08:21 12 mL ANGIOMAX BOLUS given in lab by Naldo Morrison RN via Peripheral IV. After removing the current catheter a XB 3.5 GUIDE CATHETER FR 6 was advanced over a WIRE, EXCHA NGE 260CM 9:08:51 3MMJ 260CM. 9:10:11 HR=88 bpm, GMTH=362/75 mmhg, SpO2=92.0 %, Resp=12 B/min, Pain=0, Spencer=10, Duron=2 9:10:54 A WIRE, RUNTHROUGH NS FLOPPY .014 180CM 180CM was inserted via Radial (right). A STENT, 2.25 14 INTEGRITY 2.25 14 was advanced through a XB 3.5 GUIDE CATHETER FR 6 over a WIRE , 9:14:07 RUNTHROUGH NS FLOPPY .014 180CM 180CM. 1.731 mg/kg/hr ANGIOMAX DRIP given in lab by Naldo Morrison, RN via Peripheral IV. Pump/Drip Nilson w = 28 ml/hr using 9:15:02 NaCl .9 with a concentration of 250 mg in 50 ml. 9:15:14 HR=83 bpm, YWZQ=704/72 mmhg, SpO2=92.0 %, Resp=17 B/min, Pain=0, Spencer=10, Duron=2 A STENT, 2.25 14 INTEGRITY 2.25 14 was deployed using a 30 KALEIGH INDEFLATOR at 16 atmospheres fo r 18 seconds in 9:15:35 the CIRC Mid. 9:16:13 Delivery device removed 9:16:33 The LCA was injected and visualized at various angles. OMNIPAQUE, 350 MG, 150ML 150ML use d. A BALLOON, 2.5 X 6MM NC EUPHORA 6MM was inserted over WIRE, RUNTHROUGH NS FLOPPY .014 180CM 18 0CM via 9:18:28 the CIRC Mid. 9:19:24 The LCA was injected and visualized at various angles. OMNIPAQUE, 350 MG, 150ML 150ML use d. 9:20:12 Balloon Removed. 9:20:15 HR=81 bpm, AXUY=940/72 mmhg, SpO2=91.0 %, Resp=13 B/min, Pain=0, Spencer=10, Duron=2 9:20:19 Wire removed 9:20:22 Catheter was removed 9:20:41 Case End (Physician broke scrub) Assessment: Final Case, HR=81 BPM, Rhythm=reg, ZFHC=624/72 mmhg, Chest Pain=0, Edema=None, Col or=Normal, Skin = Warm Right Pulses: Eros Ped=3, Femoral=1, Radial=3 9:20:46 Lower Right Extremities: Color=Normal Neurological: State=Alert, Ox3, ESPINOSA Respiration: Resp=11 B/min, SpO2=95 % 9:21:22 Catheter(s) removed without difficulty Radial Compression Device Used. 12 mLs of air placed in BAND, RADIAL COMPRESSION TR SHORT 24 2 4CM. Affected 9:21:24 hand 96 % O2 saturation. 9:24:40 Bedside Report will be given. 9:24:42 Implantable Device card placed in patient's chart. 9:24:44 A Left Heart Cath was performed. 9:24:46 Clinical correlaton risk stratification. 9:25:16 HR=78 bpm, CKQZ=025/78 mmhg, SpO2=94.0 %, Resp=13 B/min, Pain=0, Spencer=10, Udron=2 9:29:03 600 mg PLAVIX given in lab by Naldo Morrison, RN via Oral. End Study - Contrast Media Used In Study Contrast Total Opened (mL) Total Used (mL) Total Wasted (mL) Omnipaque 350 90 90 0 End Study - Maximum Contrast Load Max Contrast Load (mL) 577.9 End Study - Radiation Exposure Fluoro Time Fluoro Dose (mGy) Cine Dose (uGym2) (minutes) 4.7 1333 5686 End Study - Sheaths Sheaths Pulled By Sheath Hold Time (min) Agnieszka Thomas End Study - Patient Disposition Complications Transferred To Interventional Outcome No Outpatient Bed successful
[2018-06-20] MEDS ORDERED: Misc Info for Pharmacy OTHER STA (09:43)
[2018-06-20 09:45] VITALS: O2SAT 98
--- NOTE | 2018-06-20 12:19 | P.PNCA ---
Subjective Interval history: No complaints Medications and Allergies Active Medications: Active Medications Acetaminophen (Tylenol) 650 mg PO Q4H PRN PRN Reason: Temp > 100.4 Last Admin: 06/17/18 23:18 Dose: 650 mg Al Hydroxide/Mg Hydroxide (Milk Of Rajat Liq) 30 ml PO Q12H PRN PRN Reason: Mild Constipation Albuterol (Duoneb Neb (Prn)) 1 ampul NEB Q2HR NEB PRN PRN Reason: SHORTNESS OF BREATH Albuterol (Duoneb Neb (Anibal)) 1 ampul NEB Q6HR WHILE AWAKE NEB [facility] Last Admin: 06/20/18 07:43 Dose: 1 ampul Aspirin (Aspirin Chew) 81 mg PO DAILY [facility] Atorvastatin Calcium (Lipitor) 80 mg PO HS [facility] Last Admin: 06/19/18 20:34 Dose: 80 mg Azithromycin (Zithromax) 250 mg PO DAILY [facility] Last Admin: 06/20/18 08:06 Dose: 250 mg Budesonide/Formoterol Fumarate (Symbicort 80/4.5 Mcg Inh) 1 puff INH BID [facility] Last Admin: 06/19/18 20:37 Dose: 1 puff Clopidogrel Bisulfate (Plavix) 75 mg PO DAILY [facility] Famotidine (Pepcid) 20 mg PO BID [facility] Last Admin: 06/20/18 08:06 Dose: 20 mg Gabapentin (Neurontin) 600 mg PO BID [facility] Last Admin: 06/20/18 08:05 Dose: 600 mg Guaifenesin (Mucinex Er) 600 mg PO BID [facility] Last Admin: 06/20/18 08:05 Dose: 600 mg Hydrochlorothiazide (Microzide) 12.5 mg PO DAILY [facility] Last Admin: 06/20/18 08:06 Dose: 12.5 mg Metoprolol Tartrate (Lopressor) 12.5 mg PO BID [facility] Last Admin: 06/20/18 08:06 Dose: 12.5 mg Mirtazapine (Remeron) 45 mg PO [facility] Last Admin: 06/19/18 20:33 Dose: 45 mg Naloxone HCl (Narcan Inj) 0.4 mg IV.PUSH UNSCH PRN PRN Reason: SEE LABEL COMMENTS Niacin (Slo-Niacin) 500 mg PO HS [facility] Last Admin: 06/19/18 20:34 Dose: 500 mg Nitroglycerin (Nitro-Bid 2% Oint) 1 inch TOPICAL Q6HR [facility] Last Admin: 06/20/18 08:39 Dose: Not Given Ondansetron HCl (Zofran Inj) 4 mg IV.PUSH Q6H PRN PRN Reason: NAUSEA OR VOMITING Pantoprazole Sodium (Protonix) 20 mg PO DAILY [facility] Last Admin: 06/20/18 08:06 Dose: 20 mg Prednisone (Deltasone) 20 mg PO DAILY [facility] Last Admin: 06/20/18 08:05 Dose: 20 mg Quetiapine Fumarate (Seroquel) 50 mg PO BID [facility] Last Admin: 06/20/18 08:05 Dose: 50 mg Sodium Chloride (Ns Flush) 2 ml IV.FLUSH BID [facility] Last Admin: 06/19/18 20:38 Dose: 2 ml Sodium Chloride (Ns Flush) 2 ml IV.FLUSH PRN PRN PRN Reason: FLUSH AFTER USING IV ACCESS Sodium Chloride (Ns Flush) 2 ml IV.FLUSH BID [facility] Sodium Chloride (Ns Flush) 2 ml IV.FLUSH PRN PRN PRN Reason: FLUSH AFTER USING IV ACCESS Tiotropium [place] (Spiriva 18 Mcg Inh) 18 mcg INH DAILY [facility] Last Admin: 06/19/18 08:42 Dose: 18 mcg Allergies Allergy/AdvReac Type Severity Reaction Status Date / Time baclofen Allergy Unknown Unverified 01/19/17 20:13 etodolac Allergy Unknown Unverified 01/19/17 20:13 tramadol AdvReac Unknown Unverified 01/19/17 20:13 Home Medications Medication Instructions Recorded Confirmed Type gabapentin 600 mg PO BID 06/17/18 06/17/18 History hydrochlorothiazide 12.5 mg PO DAILY 06/17/18 06/17/18 History metoprolol tartrate 12.5 mg PO BID 06/17/18 06/17/18 History mirtazapine 45 mg PO HS 06/17/18 06/17/18 History multivitamin with minerals 1 cap PO DAILY 06/17/18 06/17/18 History niacin 500 mg PO HS 06/17/18 06/17/18 History omeprazole 20 mg PO DAILY 06/17/18 06/17/18 History quetiapine 50 mg PO BID 06/17/18 06/17/18 History sildenafil 50 mg PO QWEEK PRN 06/17/18 06/17/18 History Physical Exam Vital signs: Vital Signs 06/19/18 13:19 06/19/18 15:32 06/19/18 15:38 Temperature Pulse Rate 80 98 H Respiratory Rate 20 16 Blood Pressure 184/100 H 162/78 H Pulse Oximetry 96 06/19/18 20:00 06/19/18 20:24 06/20/18 00:00 Temperature 98.3 F 98.0 F Pulse Rate 76 90 83 Respiratory Rate 18 18 18 Blood Pressure 173/103 H 172/103 H Pulse Oximetry 98 96 06/20/18 04:00 06/20/18 07:45 06/20/18 07:55 Temperature 98.4 F 98.0 F Pulse Rate 86 98 H 97 H Respiratory Rate 18 16 18 Blood Pressure 156/87 H 165/98 H Pulse Oximetry 96 06/20/18 09:43 Temperature Pulse Rate Respiratory Rate Blood Pressure Pulse Oximetry 98 Intake & Output 06/19/18 06/20/18 06/20/18 18:59 06:59 18:59 Intake Total 250 / 250 Balance 250 / 250 Intake: IV 250 / 250 Heparin/D5W 25,000 U/250 mL 25, 250 / 250 000 unit In 250 ml @ Per Protocol IV.CONT TITRATE PRN Rx #:[id number] - Constitutional no acute distress - Routine HEENT Exam Eye: Present: EOMI, PERRL - Routine Neck Exam Absent: JVD - Routine Respiratory Exam Present: CTA bilaterally - Routine Cardiovascular Exam Present: RRR. Absent: murmur - Routine Abdominal Exam Present: soft, normoactive bowel sounds - Routine Extremities Exam Absent: edema - Routine Neurological Exam Present: oriented X3, CN II-XII intact. Absent: sensory deficit, motor deficit Results 06/20/18 07:52 06/18/18 06:45 Coagulation 06/18/18 06/18/18 06/19/18 Range/Units 15:30 21:19 05:50 APTT 48.9 H D 45.0 H 52.9 H (23.4-31.7) sec 06/20/18 Range/Units 07:52 APTT 41.4 H D (23.4-31.7) sec CBC 06/19/18 06/20/18 Range/Units 05:50 07:52 WBC 10.9 D 9.5 (4.0-11.0) th/mm3 RBC 4.60 5.08 (4.50-5.90) mil/mm3 Hgb 14.8 16.6 (13.0-17.0) gm/dL Hct 43.6 48.0 (39.0-51.0) % Plt Count 227 249 (150-450) th/mm3 Intake and Output 06/19/18 06/20/18 06/20/18 22:59 06:59 14:59 Intake Total 250 / 250 Balance 250 / 250 Intake: IV 250 / 250 Heparin/D5W 25,000 U/250 mL 25, 250 / 250 000 unit In 250 ml @ Per Protocol IV.CONT TITRATE PRN Rx #:[id number] Assessment and Plan - Assessment (1) NSTEMI (non-ST elevated myocardial infarction) Code(s): I21.4 - Non-ST elevation (NSTEMI) myocardial infarction Status: Acute - Plan 68 yo AAM with no prior cardiac history who is treated by the [place] [facility] for COPD, PTSD, HTN and HLD who [facility] with [facility], during his visit he became very SOB, tachypneic and developed chest pain; he was then referred to the ED for further workup. The patient states he had "9/10 " anterior, sub sternal chest discomfort upon arrival to the ED which has improved but remains persistent. He reports having had another episode of chest discomfort a few days back. His SOB has improved with breathing treatments and he is currently resting comfortably. Troponin levels minimally elevated 0.16 -- > 0.03 --> 0.28. CTA neg for P.E. NSTEMI- Status post cardiac catheterization with percutaneous coronary intervention with bare-metal stent to left circumflex coronary artery Aspirin, Plavix, beta-yariel, statin therapy. Plan for discharge later today if no postprocedural complications. Follow-up with a primary care physician.
--- NOTE | 2018-06-20 12:25 | P.PCN ---
Date of procedure: 06/20/18 Pre-op diagnosis: Non-ST elevation myocardial infarction Procedure: embossograph operator: Rashad Rojas MD Procedures performed: 1. Fluoroscopy with interpretation 2. Coronary angiography 3. Left heart catheterization 4. Percutaneous coronary intervention with terminal stent to the left circumflex coronary artery Methods: Risks, benefits, and alternatives were discussed with the patient. Patient understood and consented to the procedure. Patient was brought into the cardiac catheterization lab and placed on the catheterization table. The patient's right wrist was prepped and draped in a sterile fashion. The right wrist was anesthetized with 1% lidocaine. Right wrist was cannulated and a 6 Grenadian 11 cm sheath was placed without difficulty. 200 mcg of intra-arterial nitroglycerin was administered and 5000 units of intravenous heparin. Left heart catheterization: Intraventricular hemodynamics measured 120 over 10 mmHg. Coronary angiography: The left main coronary artery was selectively engaged with a 5 Grenadian JL 3.5 Natan catheter. The right coronary circulation was selectively engaged with a 5 Grenadian JR 5 Natna catheter. 1. Left main coronary artery is widely patent 2. Left anterior descending coronary artery has minor luminal irregularities 3. Left circumflex coronary artery gives rise to first obtuse marginal branch and subbranch which are widely patent. The mid segment of left circumflex coronary artery has an 80% calcific tubular stenosis. 4. Right coronary is a dominant vessel giving rise to the posterior descending branch. The right coronary artery has a 30% stenosis in the mid segment Conclusions: 1. Severe single-vessel coronary disease involving the left circumflex coronary artery 2. Successful percutaneous core intervention with bare-metal stent to the left circumflex coronary artery Plan: Guideline directed medical therapy. Sheath removed and Hemoband applied. Monitor for postprocedural complications. Anticipate possible discharge later today
--- NOTE | 2018-06-20 13:24 | P.PN ---
Subjective Interval history: Follow-up COPD exacerbation/non-ST elevation [place] June 18, 2018-patient seen and examined, still complains of chest tightness and reports improvement of shortness of breath. June 19, 2018-patient seen and examined, still has chest tightness, improvement of shortness of breath. No dizziness. Plan for heart catheterization June 20, 2018-patient seen and examined, patient is status post left heart catheterization with stent placement. Denies any chest tightness. Looking forward going home today. Physical Exam Vital signs: Vital Signs 06/19/18 15:32 06/19/18 15:38 06/19/18 20:00 Temperature 98.3 F Pulse Rate 98 H 76 Respiratory Rate 16 18 Blood Pressure 184/100 H 162/78 H 173/103 H Pulse Oximetry 96 98 06/19/18 20:24 06/20/18 00:00 06/20/18 04:00 Temperature 98.0 F 98.4 F Pulse Rate 90 83 86 Respiratory Rate 18 18 18 Blood Pressure 172/103 H 156/87 H Pulse Oximetry 96 96 06/20/18 07:45 06/20/18 07:55 06/20/18 09:43 Temperature 98.0 F Pulse Rate 98 H 97 H Respiratory Rate 16 18 Blood Pressure 165/98 H Pulse Oximetry 98 Intake & Output 06/19/18 06/20/18 06/20/18 18:59 06:59 18:59 Intake Total 250 / 250 Balance 250 / 250 Intake: IV 250 / 250 Heparin/D5W 25,000 U/250 mL 25, 250 / 250 000 unit In 250 ml @ Per Protocol IV.CONT TITRATE PRN Rx #:[id number] Narrative: GENERAL: NAD SKIN: Warm and dry. HEAD: Normocephalic. EYES: No scleral icterus. No injection or drainage. NECK: Supple, trachea midline. No JVD or lymphadenopathy. CARDIOVASCULAR: Regular rate and rhythm without murmurs, gallops, or rubs. RESPIRATORY: bilateral exp wheeze. No accessory muscle use. GASTROINTESTINAL: Abdomen soft, non-tender, nondistended. MUSCULOSKELETAL: No cyanosis, or edema. Results - Labs CBC & Chem 7: 06/20/18 07:52 06/18/18 06:45 Laboratory Results - last 24 hr 06/20/18 06/20/18 07:52 07:52 WBC 9.5 RBC 5.08 Hgb 16.6 Hct 48.0 MCV 94.5 MCH 32.7 MCHC 34.6 RDW 14.5 Plt Count 249 MPV 7.3 APTT 41.4 H D - Procedures Left heart catheterization with PCI, stent placement 06/20/18 Assessment and Plan - Plan 68-year-old man with COPD exacerbation-resolved CTA chest without any evidence of PE Patient status post Solu-Medrol 125 mg IV x1 in ED, on prednisone 20 mg daily and continue Spiriva, Symbicort, Duo Neb schedule and as needed, Mucinex, azithromycin 250 mg daily Maintain oxygen saturation above 92% Non-ST elevation [place] Appreciate input from cardiology Left heart catheterization with PCI, stent placement 06/20/18 s/p heparin drip, Nitropaste, aspirin, Plavix, statin beta-yariel 2D echo with EF 60-65% Hypertension, hyperlipidemia and other chronic medical conditions Continue outpatient medications DVT prophylaxis: Heparin
--- NOTE | 2018-06-20 13:26 | P.DS ---
Date of admission: 06/17/18 17:36 Primary care physician: [facility] Brief History from admission: 68-year-old man with a past medical history of hypertension, hyperlipidemia, COPD from the [place] for evaluation of worsening symptoms of shortness of breath along with respiratory distress. Apparently, patient has gone to the [facility] today for routine follow-up secondary to low back pain. [facility] was noted to have a respiratory rate of 34 with difficulty breathing. Patient states earlier this morning when he was medical history of to his appointment he endorsed severe shortness of breath with minimal exertion however as well as substernal chest pain without any radiation. He endorses occasional productive of yellow sputum but denies any febrile episode. He has no history of tobacco or alcohol abuse and denies any exposure to secondhand smoking. The patient was speaking in short sentences. He has no GI bleed. He denies using any supplemental oxygen at home. DS: Medications - Discharge Medications Prescriptions: albuterol sulfate [Ventolin HFA] 2 puff INHALATION Q4-6H PRN #1 g PRN Reason: Shortness Of Breath aspirin 81 mg PO DAILY #30 tab atorvastatin 80 mg PO HS #30 tab budesonide-formoterol [Symbicort] 1 puff INH BID #1 g clopidogrel [Plavix] 75 mg PO DAILY #30 tab ipratropium bromide [Atrovent HFA] 1 puff INHALATION Q6H #1 g metoprolol tartrate 12.5 mg PO BID #60 tab tiotropium bromide [Spiriva with HandiHaler] 18 mcg INH DAILY #1 inh DS: Summary Hospital Course: Patient admitted secondary to COPD exacerbation for which she was initially started on IV Solu-Medrol, long-acting beta agonist as well as short acting if his oxygen saturation maintained above 92%. He was subsequently switched to p.o. prednisone with significant improvement of symptoms. he was Also diagnosed with non-ST elevation [place], and started on heparin drip with consultation to cardiology. ACS was ruled out with serial cardiac enzyme and EKGs. Patient underwent left heart catheterization with stent placements on June 20, 2018. he will be discharged home on aspirin, Plavix, Lipitor, and beta-yariel. - Time Spent with Patient Total time spent providing and/or coordinating discharge services: Less than 30 minutes - Quality: VTE Deep Vein Thrombosis/Pulmonary Embolism Present on Admission: No Exam Vital signs: Vital Signs 06/19/18 15:32 06/19/18 15:38 06/19/18 20:00 Temperature 98.3 F Pulse Rate 98 H 76 Respiratory Rate 16 18 Blood Pressure 184/100 H 162/78 H 173/103 H Pulse Oximetry 96 98 06/19/18 20:24 06/20/18 00:00 06/20/18 04:00 Temperature 98.0 F 98.4 F Pulse Rate 90 83 86 Respiratory Rate 18 18 18 Blood Pressure 172/103 H 156/87 H Pulse Oximetry 96 96 06/20/18 07:45 06/20/18 07:55 06/20/18 09:43 Temperature 98.0 F Pulse Rate 98 H 97 H Respiratory Rate 16 18 Blood Pressure 165/98 H Pulse Oximetry 98 Intake & Output 06/19/18 06/20/18 06/20/18 18:59 06:59 18:59 Intake Total 250 / 250 Balance 250 / 250 Intake: IV 250 / 250 Heparin/D5W 25,000 U/250 mL 25, 250 / 250 000 unit In 250 ml @ Per Protocol IV.CONT TITRATE PRN Rx #:[id number] Narrative: GENERAL: NAD SKIN: Warm and dry. HEAD: Normocephalic. EYES: No scleral icterus. No injection or drainage. NECK: Supple, trachea midline. No JVD or lymphadenopathy. CARDIOVASCULAR: Regular rate and rhythm without murmurs, gallops, or rubs. RESPIRATORY: bilateral exp wheeze. No accessory muscle use. GASTROINTESTINAL: Abdomen soft, non-tender, nondistended. MUSCULOSKELETAL: No cyanosis, or edema. Results Procedures completed during hospitalization: Left heart catheterization with PCI, stent placement 06/20/18 Labs on day of discharge: Labs from last 24 hours 06/20/18 06/20/18 07:52 07:52 WBC 9.5 RBC 5.08 Hgb 16.6 Hct 48.0 MCV 94.5 MCH 32.7 MCHC 34.6 RDW 14.5 Plt Count 249 MPV 7.3 APTT 41.4 H D - Impressions ITS Impressions Chest X-Ray 06/17/18 13:27 CONCLUSION: 1. Mild increased interstitial markings are noted bilaterally consistent with acute or chronic interstitial disease. 2. Mild cardiomegaly. Chest CTA 06/17/18 16:00 CONCLUSION: There is no evidence of PE for technique. Discharge Plan - Discharge Disposition Patient Disposition: 01 Discharge Home - Discharge Condition Condition: Fair - Discharge Order Discharge Orders: Discharge Order (Routine); Ordered 06/20/18 Ordered By: Haresh Powers Cardiology Clear for Discharge (Routine); Ordered 06/20/18 Ordered By: Ron Rojas - Physicians Team Primary Care Provider: [facility],Physician 's Attending Provider: Haresh Powers Other Providers: Ron Rojas MD
[2018-06-20 17:50] VITALS: BP 155/76
[2018-06-20] MEDS ORDERED: Metoprolol Tartrate 25 MG Tablet PO SCH (20:00)
[2018-06-20 22:11] VITALS: PULSE 93; RESP 18
== END 2018-06-20 21:21 | disposition home or self-care (01) ==
LOC: NEDA 11:48 → NEPE 11:48 → NEPGCP 19:05 → HCIS 06-20 08:28
PROVIDERS: ADMIT Family Medicine; ATTEND Family Medicine
CPT/HCPCS: 36600; 71010; 71045; 71275; 80053; 80061; 82272; 82550; 82805; 83520; 83880; 84484; 85025; 85027; 85610; 85730; 87275; 87276; 87804; 90765; 90766; 90774; 90775; 90784; 92928; 93005; 93306; 93458; 94640; 94664; 94665; 96365; 96366; 96374; 96375; 96376; 99152; 99153; 99285; C1725; C1769; C1876; C1887; C1893; C8952; C9111; G0378; J0583; J1644; J2250; J2920; J2930; J3010; J7506; J7512; Q9967